=== PATIENT | female | born 1995 | race Caucasian/White ===

== ENCOUNTER → 2016-05-15 | Outpatient (CLI) | payer OTHER ==
[~2016-05-15] MED LIST: ALBU0.633 NEB; ALBU1NEB10 INH; ALBUAER2 INH; BCPILLS PO; DICY20TA10 PO; MELO7.5T5 PO; ONDA8TAB62 SL; OXYC-57 PO; SUMA50TA15 PO; VNTHFA/IN INH; ZOLP5TAB PO
== END | disposition home or self-care (01) ==
LOC: C.PAPS 10:58
PROVIDERS: ATTEND Obstetrics & Gynecology
DX: Z12.4 Encounter for screening for malignant neoplasm of cervix (principal); R87.616 Satisfactory cervical smear but lacking transformation zone

== ENCOUNTER → 2016-05-22 | Day surgery (SDC) | payer OTHER ==
[2016-05-19 11:25] VITALS: Ht 149.9 cm; Wt 55.5 kg
[~2016-05-22] VITALS: Ht 149.9 cm; Wt 55.5 kg
[~2016-05-22] MED LIST changes: +ATROPINE SULFATE 0.1 MG/ML 5ML SYR IV PRN; +BUPIVACAINE/EPINEPHRINE 0.25% 1:200,000 30 ML VIAL ONE; +CEFAZOLIN 1000MG/55 ML D5W IV SCH; +DEXAMETHASONE SOD INJ 4 MG/ML VIAL IV PRN; +DEXAMETHASONE SOD INJ 4 MG/ML VIAL ONE; +EpHEDrine SULFATE INJ 50 MG/ML AMP IV PRN; +EpINEphrine INJ 1MG/ML AMP 1 MG/ML AMP ONE; +FENTANYL CITRATE INJ 50 MCG/1 ML 2 ML VIAL IV PRN; +FENTANYL CITRATE INJ 50 MCG/1 ML 2 ML VIAL ONE; +GLYCOPYRROLATE INJ 0.2 MG/ML VIAL ONE; +LABETALOL HCL IV 5 MG/ML 20ML IV PRN; +LACTATED RINGER'S 1000ML 1,000 ML IV SCH; +LIDOCAINE HCL 1% MPF 2 ML VIAL ONE; +LIDOCAINE HCL 2% 2 ML VIAL (20MG/ML) ONE; +METOCLOPRAMIDE HCL INJ 5 MG/ML 2 ML VIAL IV PRN; +MIDAZOLAM HCL 1 MG/ML 2ML VIAL ONE; +MoRPHine SULFATE 10 MG/ML CARP/VIAL IV PRN; +NEOSTIGMINE METHYLSULFATE 5 MG/5 ML SYR ONE; +ONDANSETRON INJ 2 MG/ML 2 ML VIAL IV PRN; +ONDANSETRON INJ 2 MG/ML 2 ML VIAL ONE; +OXYCODONE/ACETAMINOPHEN 5-325 TAB PO PRN; +PHENYLEPHRINE 100MCG/ML 5ML SYR IV PRN; +ROCURONIUM BROMIDE 10 MG/ML 5 ML VIAL ONE; +ROPIVACAINE 0.5% 5 MG/ML 30 ML VIAL ONE; +SODIUM CHLORIDE 0.9% 1000ML 1,000 ML IV SCH
--- NOTE | 2016-05-22 11:07 | History & Physical Bridge - [place] ---
H&P Re-Evaluation Bridge Note: I have examined the patient, reviewed the History & Physical and in the interval since the performance of the History & Physical I have noted the following changes of clinical significance: No changes noted
--- NOTE | 2016-05-22 13:26 | Discharge Instructions-SurgCtr ---
Discharge Instructions Visit Reason for Visit: Left Shoulder Detachment Glenoid Labrum &/0R Capsu Discharge Discharge Diagnosis / Problem: SAME ABOVE Discharge Goals Goal(s): Decrease discomfort, Improve function Activity Recommendations Activity Limitations: per Instructions/Follow-up section Lifting Limitations: gradually increase as tolerated Exercise/Sports Limitations: gradually increase as tolerated Shower/Bathe: tomorrow Driving or Machine Use: ONCE OUT OF THE SLING AND NOT ON NARCOTIC PAIN MEDICATION Anesthesia . Post Anesthesia Instructions: If you have had General Anesthesia or IV Sedation: * Do not drive today. * Resume driving when surgeon permits. * Do not make important decisions or sign legal documents today. * Call surgeon for: 1. Temperature elevations greater than 101 degrees F. 2. Uncontrollable pain. 3. Excessive bleeding. 4. Persistent nausea and vomiting. 5. Medication intolerance (nausea, vomiting or rash). * For nausea and vomiting use only clear liquids such as: tea, soda, bouillon until nausea subsides, then gradually increase diet as tolerated. * If you have any concerns or questions, call your surgeon's office. If physician is unavailable and it is an emergency, call 911 or go to the nearest emergency room. . Instructions / Follow-Up Instructions / Follow-Up MEDICATIONS: * Resume previous medications unless instructed otherwise by your surgeon. * Always take pain medication on a full stomach or with food to avoid upset stomach. * Do not drink alcohol or drive while taking narcotics. * Ibuprofen or Tylenol may be taken if narcotic not needed. SPECIAL CARE INSTRUCTIONS: __ None _X_ Keep extremity elevated and iced x 48 hours; apply ice 20-30 minutes 8-10 times/day. May remove at night. _X_ Sling (WEAR NEEDED FOR COMFORT) __24 hrs/day __ Remove at night __ Shoulder Immobilizer __ 24 hrs/day __ Remove at night _X_ Dressing __ Maintain until seen in office, may shower with plastic over site _X_ Remove dressings in 24-48 hours and then may shower _X_ Cover incisions with band-aids after showering __ Do not remove steri-strips Call physician if chills or temperature rises above 102 degrees or pain unrelieved by prescribed pain medications at . . Diet Recommendations Home Diet: no limitations Fluid Restriction: None Procedures Procedures Performed: Left Shoulder Arthroscopy, Limited Debridement, Subacromial Decompression, Distal Clavicle Excision Pending Studies Studies pending at discharge: no Work Instructions Return To Work: after follow-up Lifting Limitations: TOLERATED Medical Emergencies . Who to Call and When: Medical Emergencies: If at any time you feel your situation is an emergency, please call 911 immediately. . Non-Emergent Contact Non-Emergency issues call your: Primary Care Provider Call Non-Emergent contact if: you have a fever, temperature is above 101.5 . . "Provider Documentation" section prepared by Christiano Garcia.
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
[2016-05-22 14:05] VITALS: TEMP 36.7
--- NOTE | 2016-05-22 14:31 | Anesthesia Progress Nt - [facility] ---
Anesthesia Post Op Note Date & Time May 22, 2016 at 14:30 Vital Signs Pain Intensity: 0 Vital Signs Past 12 Hours Date Time Temp Pulse Resp B/P Pulse Ox O2 Delivery O2 Flow Rate FiO2 05/22/16 14:05 36.7 95 16 107/67 97 Room Air 05/22/16 13:56 36.5 91 21 113/70 100 Room Air 05/22/16 13:55 84 25 100 05/22/16 13:55 82 25 05/22/16 13:53 113/70 05/22/16 13:50 88 21 100 05/22/16 13:50 88 21 05/22/16 13:48 117/66 05/22/16 13:45 85 19 100 05/22/16 13:45 85 19 05/22/16 13:43 120/73 05/22/16 13:40 90 25 100 05/22/16 13:40 92 25 05/22/16 13:38 118/72 05/22/16 13:35 98 18 05/22/16 13:35 96 18 109/68 100 05/22/16 13:30 88 23 05/22/16 13:30 87 23 100 05/22/16 13:28 115/70 05/22/16 13:25 98 25 05/22/16 13:25 95 25 100 05/22/16 13:23 115/78 05/22/16 13:20 87 19 05/22/16 13:20 87 19 100 05/22/16 13:18 116/81 05/22/16 13:16 36.4 106 20 118/68 100 Mask 6 05/22/16 13:15 99 16 100 05/22/16 13:15 100 16 05/22/16 13:14 118/68 05/22/16 11:50 98 05/22/16 11:50 98 30 100 05/22/16 11:49 90 25 100 05/22/16 11:49 92 05/22/16 11:48 110/73 05/22/16 11:44 97 05/22/16 11:44 98 28 100 05/22/16 11:43 110/73 05/22/16 11:41 105 20 100 05/22/16 11:41 101 05/22/16 11:38 111/69 05/22/16 11:36 93 21 100 05/22/16 11:36 91 05/22/16 11:33 109/72 05/22/16 11:31 101 05/22/16 11:31 96 27 100 05/22/16 11:28 114/74 05/22/16 11:28 115/74 05/22/16 11:26 98 05/22/16 11:26 91 0 96 05/22/16 11:21 87 05/22/16 11:21 82 0 99 05/22/16 11:16 88 0 99 05/22/16 11:16 88 05/22/16 11:11 79 0 100 05/22/16 11:11 81 05/22/16 10:37 36.9 81 16 100/74 99 Room Air Notes Mental Status: alert / awake / arousable, participated in evaluation Pt Amnestic to Procedure: Yes Nausea / Vomiting: adequately controlled Pain: adequately controlled Airway Patency, RR, SpO2: stable & adequate BP & HR: stable & adequate Hydration State: stable & adequate Anesthetic Complications: no major complications apparent
[2016-05-22 14:32] VITALS: BP 103/71; PULSE 92; O2SAT 99
--- NOTE | 2016-05-22 16:09 | [facility] Post Operative Brief Note ---
Immediate Operative Summary Operative Date May 22, 2016. Pre-Operative Diagnosis Left Shoulder Detachment Glenoid Labrum Post-Operative Diagnosis Same Procedure(s) Performed Left Shoulder Arthroscopy, Limited Debridement, Subacromial Decompression, Distal Clavicle Excision Surgeon Dr. Omayra Ledesma Information Security Architect Surgeon(s) Javi Garcia PA-C Estimated Blood Loss 2 cc Findings as above Specimens None Complication(s) None Disposition Recovery Room / PACU
== END | disposition home or self-care (01) ==
LOC: X.SURG 10:21
PROVIDERS: ATTEND Orthopaedic Surgery
DX: M75.92 Shoulder lesion, unspecified, left shoulder (principal); S46.902A Unspecified injury of unspecified muscle, fascia and tendon at shoulder and upper arm level, left arm, initial encounter; V49.88XA Car occupant (driver) (passenger) injured in other specified transport accidents, initial encounter; Y92.410 Unspecified street and highway as the place of occurrence of the external cause

== ENCOUNTER 2016-07-31 09:31 | Emergency (ER) | payer OTHER ==
[~2016-07-31] VITALS: Ht 149.9 cm; Wt 58.9 kg
[~2016-07-31 09:31] MED LIST changes: -ALBU0.633 NEB; -ATROPINE SULFATE 0.1 MG/ML 5ML SYR IV PRN; -BUPIVACAINE/EPINEPHRINE 0.25% 1:200,000 30 ML VIAL ONE; -CEFAZOLIN 1000MG/55 ML D5W IV SCH; -DEXAMETHASONE SOD INJ 4 MG/ML VIAL IV PRN; -DEXAMETHASONE SOD INJ 4 MG/ML VIAL ONE; -EpHEDrine SULFATE INJ 50 MG/ML AMP IV PRN; -EpINEphrine INJ 1MG/ML AMP 1 MG/ML AMP ONE; -FENTANYL CITRATE INJ 50 MCG/1 ML 2 ML VIAL IV PRN; -FENTANYL CITRATE INJ 50 MCG/1 ML 2 ML VIAL ONE; -GLYCOPYRROLATE INJ 0.2 MG/ML VIAL ONE; -LABETALOL HCL IV 5 MG/ML 20ML IV PRN; -LACTATED RINGER'S 1000ML 1,000 ML IV SCH; -LIDOCAINE HCL 1% MPF 2 ML VIAL ONE; -LIDOCAINE HCL 2% 2 ML VIAL (20MG/ML) ONE; -METOCLOPRAMIDE HCL INJ 5 MG/ML 2 ML VIAL IV PRN; -MIDAZOLAM HCL 1 MG/ML 2ML VIAL ONE; -MoRPHine SULFATE 10 MG/ML CARP/VIAL IV PRN; -NEOSTIGMINE METHYLSULFATE 5 MG/5 ML SYR ONE; -ONDANSETRON INJ 2 MG/ML 2 ML VIAL IV PRN; -ONDANSETRON INJ 2 MG/ML 2 ML VIAL ONE; -OXYCODONE/ACETAMINOPHEN 5-325 TAB PO PRN; -PHENYLEPHRINE 100MCG/ML 5ML SYR IV PRN; -ROCURONIUM BROMIDE 10 MG/ML 5 ML VIAL ONE; -ROPIVACAINE 0.5% 5 MG/ML 30 ML VIAL ONE; -SODIUM CHLORIDE 0.9% 1000ML 1,000 ML IV SCH; -VNTHFA/IN INH
[2016-07-31 09:38] VITALS: Ht 149.9 cm; Wt 58.9 kg
[2016-07-31] MEDS ORDERED: HYDROmorphone INJ 1 MG/ML SYR IV STA (10:39)
[2016-07-31] MEDS ORDERED: SODIUM CHLORIDE 0.9% 1000ML 1,000 ML IV STA (10:39)
[2016-07-31] MEDS ORDERED: ONDANSETRON INJ 2 MG/ML 2 ML VIAL IV STA (10:39)
[2016-07-31] MEDS ORDERED: VNTHFA/IN INH (10:41)
[2016-07-31] MEDS ORDERED: ALBU0.633 NEB (10:41)
--- NOTE | 2016-07-31 10:45 | EMERGENCY ROOM VISIT NOTE ---
History Report prepared by Aisha: Tri Coffey Under the Supervision of: Dr. Catina Pascual M.D. First contact with patient: 10:21 Chief Complaint: ABDOMINAL PAIN Stated Complaint: CRONRIS FLARE W/PAIN/NAUSEA Nursing Triage Summary: Had a diagnosis for Claudio dx. Recently DR angelica thrasher that it is not Krohns, but having same pain today as always. History of Present Illness The patient is a 20 year old female who presents to the Emergency Room with complaints of persistent right sided abdominal pain that began a couple days ago. She also complains of nausea. Last night, the patient had a solid bowel movement but noticed some blood on the tissue when she wiped. She states that she was diagnosed with Crohn's disease several years ago at [place]. Currently, she follows up with Dr. Penaloza. Recently, it was determined that she does not have Crohn's, and Dr. Penaloza is "trying to determine" her new diagnosis. Her most recent follow up with Dr. Penaloza was last month. She had a colonoscopy in January 2016 which she states revealed colonic inflammation. The patient's current abdominal pain feels similar to previous abdominal pain flare ups. She has not eaten anything unusual recently. Her most last menstrual period was 2 weeks ago. She denies chance of . Denies fever, diarrhea, urinary symptoms, or other complaints. Source of History: patient Onset: a couple days ago Position: abdomen (right side) Timing: other (persistent) Associated Symptoms: + nausea, No diarrhea, No fevers, No urinary symptoms Note: Other symptoms: rectal bleeding Review of Systems See HPI for pertinent positives & negatives. A total of 10 systems reviewed and were otherwise negative. Past Medical & Surgical Medical Problems: (1) Asthma (2) Crohns disease (3) IBS (irritable bowel syndrome) (4) Panic anxiety syndrome Family History FH: Crohn's disease Heart disease Hypertension Social History Smoking Status: Never Smoker Alcohol Use: none Drug Use: none Marital Status: in relationship Housing Status: lives with roommate Occupation Status: [employer] student Current/Historical Medications Scheduled Albuterol Hfa (Ventolin Hfa), 2-4 PUFFS INH Q6H Control Pills ( Control Pills), 1 TAB PO HS Scheduled PRN Albuterol Sulfate (Albuterol Sulfate), 1 VIAL NEB for SOB/Wheezing Dicyclomine Hcl (Dicyclomine Hcl), 1 TAB PO TID PRN for ABDOMINAL PAIN Meloxicam (Mobic), 7.5-15 MG PO DAILY PRN for Pain Ondansetron Odt (Zofran Odt), 8 MG SL Q6H PRN for Nausea Oxycodone/Acetaminophen 5MG/325MG (Percocet 5MG/325MG), 1-2 TABLETS PO Q6 PRN for Pain Sumatriptan Succinate (Imitrex), 50 MG PO UD PRN for Migraine Zolpidem Tartrate (Ambien), 5 MG PO HS PRN for Sleep Allergies Coded Allergies: Amoxicillin (Verified Adverse Reaction, Unknown, GI UPSET, 07/31/16) Cefuroxime (Verified Adverse Reaction, Unknown, GI UPSET, 07/31/16) Clarithromycin (Verified Adverse Reaction, Unknown, GI UPSET, 07/31/16) Clavulanic Acid (Verified Adverse Reaction, Unknown, GI UPSET, 07/31/16) Ketorolac Tromethamine (Verified Adverse Reaction, Unknown, NAUSEA/ VOMITTING, 07/31/16) Uncoded Allergies: ALL CT CONTRAST (Allergy, Intermediate, ANAPHYLAXIS, 08/02/15) Physical Exam Vital Signs Date Time Temp Pulse Resp B/P Pulse Ox O2 Delivery O2 Flow Rate FiO2 07/31/16 12:56 37.0 82 18 98/68 98 07/31/16 12:34 82 18 98/68 98 Room Air 07/31/16 11:44 70 18 102/65 97 Room Air 07/31/16 11:27 81 07/31/16 09:38 37.0 83 18 119/72 95 Room Air Physical Exam Vital signs reviewed. General: Well-appearing 20 year old female, in no significant distress. HEENT: No scleral icterus, PERRLA, neck supple. Atraumatic. Cardiovascular: Regular rate and rhythm, no extra sounds. Pulmonary: Clear to auscultation bilaterally, normal work of breathing. Abdomen: Soft, mild right lower quadrant abdominal tenderness, no rebound, no guarding, nondistended, positive bowel sounds. Musculoskeletal: Atraumatic, no peripheral edema. Neurologic: Patient awake alert and oriented x 3 Skin: Warm, dry, no rash Medical Decision & Procedures Laboratory Results 07/31/16 10:55 Red Blood Count 4.57, Mean Corpuscular Volume 86.0, Mean Corpuscular Hemoglobin 29.5, Mean Corpuscular Hemoglobin Concent 34.4, Mean Platelet Volume 8.8, Neutrophils (%) (Auto) 50.9, Lymphocytes (%) (Auto) 38.7, Monocytes (%) (Auto) 8.4, Eosinophils (%) (Auto) 0.9, Basophils (%) (Auto) 1.1, Neutrophils # (Auto) 2.73, Lymphocytes # (Auto) 2.08, Monocytes # (Auto) 0.45, Eosinophils # (Auto) 0.05, Basophils # (Auto) 0.06 07/31/16 10:55 Test 07/31/16 10:30 07/31/16 10:55 Urine Color YELLOW Urine Appearance CLEAR (CLEAR) Urine pH 7.5 (4.5-7.5) Urine Specific [place] 1.013 (1.000-1.030) Urine Protein NEG (NEG) Urine Glucose (UA) NEG (NEG) Urine Ketones NEG (NEG) Urine Occult Blood TRACE (NEG) Urine Nitrite NEG (NEG) Urine Bilirubin NEG (NEG) Urine Urobilinogen NEG (NEG) Urine Leukocyte Esterase NEG (NEG) Urine WBC (Auto) 1-5 /hpf (0-5) Urine RBC (Auto) 5-10 /hpf (0-4) Urine Hyaline Casts (Auto) 1-5 /lpf (0-5) Urine Epithelial Cells (Auto) 20-30 /lpf (0-5) Urine Bacteria (Auto) NEG (NEG) Urine Test NEG (NEG) White Blood Count 5.37 K/uL (4.8-10.8) Red Blood Count 4.57 M/uL (4.2-5.4) Hemoglobin 13.5 g/dL (12.0-16.0) Hematocrit 39.3 % (37-47) Mean Corpuscular Volume 86.0 fL (80-100) Mean Corpuscular Hemoglobin 29.5 pg (25-34) Mean Corpuscular Hemoglobin Concent 34.4 g/dl (32-36) Platelet Count 311 K/uL (130-400) Mean Platelet Volume 8.8 fL (7.4-10.4) Neutrophils (%) (Auto) 50.9 % Lymphocytes (%) (Auto) 38.7 % Monocytes (%) (Auto) 8.4 % Eosinophils (%) (Auto) 0.9 % Basophils (%) (Auto) 1.1 % Neutrophils # (Auto) 2.73 K/uL (1.4-6.5) Lymphocytes # (Auto) 2.08 K/uL (1.2-3.4) Monocytes # (Auto) 0.45 K/uL (0.11-0.59) Eosinophils # (Auto) 0.05 K/uL (0-0.5) Basophils # (Auto) 0.06 K/uL (0-0.2) RDW Standard Deviation 41.8 fL (36.4-46.3) RDW Coefficient of Variation 13.3 % (11.5-14.5) Immature Granulocyte % (Auto) 0.0 % Immature Granulocyte # (Auto) 0.00 K/uL (0.00-0.02) Anion Gap 6.0 mmol/L (3-11) Est Creatinine Clear Calc Drug Dose 81.1 ml/min Estimated GFR () 112.7 Estimated GFR (Non- 97.3 BUN/Creatinine Ratio 10.6 (10-20) Calcium Level 9.3 mg/dl (8.5-10.1) Total Bilirubin 0.5 mg/dl (0.2-1) Direct Bilirubin < 0.1 mg/dl (0-0.2) Aspartate Amino Transf (AST/SGOT) 11 U/L (15-37) Alanine Aminotransferase (ALT/SGPT) 18 U/L (12-78) Alkaline Phosphatase 54 U/L (45-117) Total Protein 7.7 gm/dl (6.4-8.2) Albumin 3.9 gm/dl (3.4-5.0) Lipase 181 U/L (73-393) Laboratory results per my review. Medications Administered Medications (Trade) Dose Ordered Sig/Fco Route Start Time Stop Time Status Last Admin Dose Admin Sodium Chloride (Nss 1000ml) 1,000 ml @ 999 mls/hr Q1H1M STAT IV 07/31/16 10:39 07/31/16 11:39 DC 07/31/16 11:06 999 MLS/HR Ondansetron HCl (Zofran Inj) 4 mg NOW STAT IV 07/31/16 10:39 07/31/16 10:42 DC 07/31/16 11:05 4 MG Hydromorphone HCl (Dilaudid Inj) 1 mg NOW STAT IV 07/31/16 10:39 07/31/16 10:42 DC 07/31/16 11:05 1 MG ED Course 1024: Past medical records reviewed. The patient was evaluated in room B1. A complete history and physical examination was performed. 1039: Ordered Dilaudid Inj 1 mg IV, Zofran Inj 4 mg IV, NSS 1000 ml @ 999 mls/ hr IV. 1200: I discussed the case with Dr. Dipak Hutson Gastroenterology. 1220: Upon reevaluation, the patient appeared to have improvement of her symptoms. I discussed findings with the patient. She verbalized agreement of the treatment plan. The patient was discharged home. Medical Decision Differential diagnosis: Etiologies such as appendicitis, diverticulitis, PUD, biliary pathology, UTI, pancreatitis, obstruction, mesenteric ischemia, aortic pathology, infections, inflammatory bowel disease, renal colic, as well as others were entertained. This patient was evaluated and appeared to be in no significant distress. IV access was obtained and laboratory work was drawn. The patient was placed on the quality assurance monitor. She was hydrated with normal saline solution and given IV Dilaudid and Zofran. Laboratory work is fairly unrevealing, urinalysis is negative. I did discuss the case with Dr. Penaloza of gastroenterology. He states the patient's chronic pain is similar. Incidentally he states her workups have essentially been negative and there is no evidence of inflammatory bowel disease. At this time I do not think further abdominal imaging is warranted as she has had multiple CTs. I suspect this is chronic pain and she will follow- up with Dr. penaloza as an outpatient. Consults Time Called: 1150 Consulting Physician: Dr. Dipak Hutson Gastroenterology Returned Call: 1200 I discussed the case with him. Impression Primary Impression: Right lower quadrant abdominal pain Scribe Attestation The scribe's documentation has been prepared under my direction and personally reviewed by me in its entirety. I confirm that the note above accurately reflects all work, treatment, procedures, and medical decision making performed by me. Departure Information Dispostion Home / Self-Care Referrals Sulaiman Ledesma DO (PCP) Silverio Penaloza D.O. Patient Instructions My [facility] Additional Instructions Diagnosis: RLQ abd pain, acute on chronic Continue medications as prescribed by Dr Penaloza. Drink plenty of fluids. Maintain a bland diet this week. Follow up with your doctor this week for reevaluation. Return to emergency for worsening of symptoms or any medical concerns.
[2016-07-31 11:06] LABS: BASO % 1.1 %; BASO ABS # 0.06 K/uL (0-0.2); COMPLETE YES; EOS % 0.9 %; HEMATOCRIT 39.3 % (37-47); LYMPH % 38.7 %; LYMPH ABS # 2.08 K/uL (1.2-3.4); MEAN CORPUSCULAR HEMOGLOBIN 29.5 pg (25-34); MEAN CORPUSCULAR HGB CONC 34.4 g/dl (32-36); MEAN PLATELET VOLUME 8.8 fL (7.4-10.4); MONO % 8.4 %; NEUT % 50.9 %; PLATELET COUNT 311 K/uL (130-400); RED BLOOD COUNT 4.57 M/uL (4.2-5.4); WHITE BLOOD COUNT 5.37 K/uL (4.8-10.8)
[2016-07-31 11:11] LABS: URINE APPEARANCE CLEAR (CLEAR); URINE BILIRUBIN NEG (NEG); URINE COLOR YELLOW; URINE EPITHELIAL CELL AUTO 20-30 /lpf (0-5); URINE NITRITE NEG (NEG); URINE PH 7.5 (4.5-7.5); URINE SPECIFIC GRAVITY 1.013 (1.000-1.030); UROBILINOGEN NEG (NEG); ZZUR CULT IF INDIC CLEAN CATCH NO
[2016-07-31 11:12] LABS: MANUAL MICROSCOPIC REQUIRED? NO; REVIEW REQ? NO
[2016-07-31 11:19] LABS: BLOOD UREA NITROGEN 9 mg/dl (7-18); BUN/CREATININE RATIO 10.6 (10-20); CALCIUM 9.3 mg/dl (8.5-10.1); CARBON DIOXIDE 25 mmol/L (21-32); CHLORIDE 109 mmol/L (98-107); CREATININE 0.85 mg/dl (0.60-1.20); GLUCOSE 94 mg/dl (70-99); POTASSIUM 3.7 mmol/L (3.5-5.1); SODIUM 140 mmol/L (136-145)
[2016-07-31 11:23] LABS: ALKALINE PHOSPHATASE 54 U/L (45-117); ALT/SGPT 18 U/L (12-78); AST/SGOT 11 U/L (15-37)
[2016-07-31 12:56] VITALS: BP 98/68; PULSE 82; TEMP 37; O2SAT 98
== END 2016-07-31 12:57 | disposition home or self-care (01) ==
LOC: C.EDB 09:33
DX: R10.31 Right lower quadrant pain (principal); K50.90 Crohn's disease, unspecified, without complications; K58.9 Irritable bowel syndrome, unspecified; J45.909 Unspecified asthma, uncomplicated; F41.0 Panic disorder [episodic paroxysmal anxiety]; Z79.899 Other long term (current) drug therapy; Z88.1 Allergy status to other antibiotic agents; Z88.8 Allergy status to other drugs, medicaments and biological substances; Z82.49 Family history of ischemic heart disease and other diseases of the circulatory system; Z83.79 Family history of other diseases of the digestive system

== ENCOUNTER 2017-02-16 18:17 | Emergency (ER) | payer OTHER ==
[~2017-02-16] VITALS: Ht 149.9 cm; Wt 62.2 kg
[~2017-02-16 18:17] MED LIST changes: +ALBU0.633 NEB; -ALBU1NEB10 INH; -ALBUAER2 INH; -OXYC-57 PO; +VNTHFA/IN INH
[2017-02-16 18:26] VITALS: TEMP 37; Ht 149.9 cm; Wt 62.2 kg
[2017-02-16] MEDS ORDERED: ONDANSETRON INJ 2 MG/ML 2 ML VIAL IV STA (19:24)
[2017-02-16] MEDS ORDERED: SODIUM CHLORIDE 0.9% 1000ML 1,000 ML IV STA (19:24)
[2017-02-16] MEDS ORDERED: MoRPHine SULFATE 10 MG/ML CARP/VIAL IV PRN (19:30)
[2017-02-16] MEDS ORDERED: ATV/1 PO (19:39)
[2017-02-16 19:54] LABS: BASO % 0.6 %; BASO ABS # 0.04 K/uL (0-0.2); COMPLETE YES; HEMATOCRIT 41.8 % (37-47); IG% 0.1 %; LYMPH % 41.2 %; LYMPH ABS # 2.86 K/uL (1.2-3.4); MEAN CORPUSCULAR HEMOGLOBIN 30.1 pg (25-34); MEAN CORPUSCULAR HGB CONC 34.2 g/dl (32-36); MONO % 5.8 %; NEUT % 52.3 %; PLATELET COUNT 311 K/uL (130-400); RED BLOOD COUNT 4.75 M/uL (4.2-5.4); WHITE BLOOD COUNT 6.94 K/uL (4.8-10.8)
[2017-02-16 20:01] LABS: URINE APPEARANCE CLEAR (CLEAR); URINE BILIRUBIN NEG (NEG); URINE COLOR YELLOW; URINE EPITHELIAL CELL AUTO >30 /lpf (0-5); URINE NITRITE NEG (NEG); URINE PH 7.5 (4.5-7.5); URINE SPECIFIC GRAVITY 1.017 (1.000-1.030); UROBILINOGEN NEG (NEG)
[2017-02-16 20:14] LABS: MANUAL MICROSCOPIC REQUIRED? NO; REVIEW REQ? NO
[2017-02-16 20:20] LABS: BUN/CREATININE RATIO 10.2 (10-20); CALCIUM 8.9 mg/dl (8.5-10.1); CREATININE 0.85 mg/dl (0.60-1.20); POTASSIUM 3.7 mmol/L (3.5-5.1)
--- NOTE | 2017-02-16 20:48 | DIAGNOSTIC IMAGING REPORT ---
APPENDIX ULTRASOUND HISTORY: Right lower quadrant ABDOMINAL PAIN COMPARISON: None. FINDINGS: Transabdominal scanning of the right lower quadrant was performed. The appendix was not identified. There are no fluid collections or masses within the right lower quadrant. IMPRESSION: The appendix was not identified. Electronically signed by: Danielito De Leon M.D. 02/16/2017 8:47 PM Dictated Date/Time: 02/16/2017 8:46 PM
[2017-02-16] MEDS ORDERED: FENTANYL CITRATE INJ 50 MCG/1 ML 2 ML VIAL IV STA (20:51)
[2017-02-16 21:21] VITALS: BP 104/69; PULSE 85; O2SAT 98
--- NOTE | 2017-02-17 01:54 | EMERGENCY ROOM VISIT NOTE ---
ED Visit Note First contact with patient: 19:04 Chief Complaint: I think, having a flare of my irritable bowel disease. History of Present Illness: Ms. Grande is a 21 year-old white female who ambulates into the ED accompanied by a male friend complaining of mid right quadrant abdominal pain. Historically patient reports history of irritable bowel disease, irritable bowel syndrome. She has had no previous abdominal surgeries. Patient reports a gradual onset of right mid quadrant abdominal pain that started approximately 10 hours ago. She reports initially the pain was mild and has gradually increased in intensity. The pain is currently described as squeezing/cramping sensation. She rates the discomfort 7/10. The pain is nonradiating. She has not identified any alleviating factors related to the pain. Her pain worsens with palpation and movements at the waist. She has not taken any medications for pain prior to arrival at the hospital. Associated with her pain she is nauseated but has not vomited; she has used Zofran. She also reports she has a mild decrease in appetite. Patient denies fevers, chills, sweats, skin eruptions, skin color changes, upper respiratory tract symptoms, shortness of breath, chest pain, diarrhea, constipation, rectal bleeding, black/tarry stools, urinary symptoms, hematuria, vaginal bleeding, vaginal discharge, back/flank pain. Review of Systems: As noted above in history of present illness. All body systems were reviewed and found to be negative as noted above. Past Medical History: Asthma, bronchitis, fibromyalgia, migraines, status post right knee or scope, and last shoulder/clavicle arthroscope. Current Medications: control, Zofran, Imitrex, Motrin, Ambien, albuterol, Ativan. Allergies to Medications: All CT contrast medium, amoxicillin, cefuroxime, clarithromycin, clavulanic acid, ketorolac tromethamine. Social History: Patient is currently employed; she feels safe in her home environment; she denies tobacco use and admits to alcohol use. Physical Examination: Vital Signs: Date Time Temp Pulse Resp B/P (MAP) Pulse Ox O2 Delivery O2 Flow Rate FiO2 02/16/17 21:21 85 20 104/69 98 02/16/17 20:20 81 17 102/67 100 Room Air 02/16/17 18:26 37.0 79 20 108/75 99 Room Air GENERAL: 21-year-old female in mild to moderate distress due to pain, nontoxic- appearing, afebrile and hemodynamically stable. NEUROLOGICAL: Awake, alert and oriented to person, place and time. Answering questions appropriately and following commands. Normal gait. Good hand eye coordination. SKIN: Warm, dry and pink. No soft tissue eruptions or trauma noted. HEENT: Atraumatic and normocephalic. PERRLA. Sclera white and conjunctiva pink. Oral cavity moist and pink. Pharynx is nonerythematous or edematous. Speech normal. No lymphadenopathy. Trachea midline. No jugular venous distention. BACK: No tenderness over the bony spine. No CVA tenderness. THORAX: Lungs sounds are clear to auscultation and equal bilaterally with symmetrical chest wall. No wheezing, rales or rhonchi. No crepitus, tenderness , subcutaneous air or deformities noted. HEART: Regular rate and rhythm. No gallops, rubs or murmurs are appreciated. ABDOMEN: Flat and soft with mild to moderate tenderness in the mid right abdomen. No specific tenderness over McBurney's point or throughout the pelvis. Decreased bowel sounds in all quadrants. No guarding, rigidity or organomegaly. EXTREMITIES: Moves all extremities well on command and with purpose. All distal neurovascular statuses are intact and equal bilaterally. ED Course: Patient is assessed as noted above. Laboratory Testing: Test 02/16/17 19:35 Range/Units White Blood Count 6.94 4.8-10.8 K/uL Red Blood Count 4.75 4.2-5.4 M/uL Hemoglobin 14.3 12.0-16.0 g/dL Hematocrit 41.8 37-47 % Mean Corpuscular Volume 88.0 80-100 fL Mean Corpuscular Hemoglobin 30.1 25-34 pg Mean Corpuscular Hemoglobin Concent 34.2 32-36 g/dl Platelet Count 311 130-400 K/uL Mean Platelet Volume 9.0 7.4-10.4 fL Neutrophils (%) (Auto) 52.3 % Lymphocytes (%) (Auto) 41.2 % Monocytes (%) (Auto) 5.8 % Eosinophils (%) (Auto) 0.0 % Basophils (%) (Auto) 0.6 % Neutrophils # (Auto) 3.63 1.4-6.5 K/uL Lymphocytes # (Auto) 2.86 1.2-3.4 K/uL Monocytes # (Auto) 0.40 0.11-0.59 K/uL Eosinophils # (Auto) 0.00 0-0.5 K/uL Basophils # (Auto) 0.04 0-0.2 K/uL RDW Standard Deviation 42.1 36.4-46.3 fL RDW Coefficient of Variation 13.1 11.5-14.5 % Immature Granulocyte % (Auto) 0.1 % Immature Granulocyte # (Auto) 0.01 0.00-0.02 K/uL Urine Color YELLOW Urine Appearance CLEAR CLEAR Urine pH 7.5 4.5-7.5 Urine Specific [place] 1.017 1.000-1.030 Urine Protein NEG NEG Urine Glucose (UA) NEG NEG Urine Ketones NEG NEG Urine Occult Blood TRACE NEG Urine Nitrite NEG NEG Urine Bilirubin NEG NEG Urine Urobilinogen NEG NEG Urine Leukocyte Esterase NEG NEG Urine WBC (Auto) 1-5 0-5 /hpf Urine RBC (Auto) 10-30 0-4 /hpf Urine Hyaline Casts (Auto) 0 0-5 /lpf Urine Epithelial Cells (Auto) >30 0-5 /lpf Urine Bacteria (Auto) NEG NEG Urine Test NEG NEG Sodium Level 140 136-145 mmol/L Potassium Level 3.7 3.5-5.1 mmol/L Chloride Level 110 98-107 mmol/L Carbon Dioxide Level 24 21-32 mmol/L Anion Gap 6.0 3-11 mmol/L Blood Urea Nitrogen 9 7-18 mg/dl Creatinine 0.85 0.60-1.20 mg/dl Est Creatinine Clear Calc Drug Dose 82.6 ml/min Estimated GFR () 111.9 Estimated GFR (Non- 96.6 BUN/Creatinine Ratio 10.2 10-20 Random Glucose 86 70-99 mg/dl Calcium Level 8.9 8.5-10.1 mg/dl Total Bilirubin 0.5 0.2-1 mg/dl Direct Bilirubin 0.1 0-0.2 mg/dl Aspartate Amino Transf (AST/SGOT) 11 15-37 U/L Alanine Aminotransferase (ALT/SGPT) 16 12-78 U/L Alkaline Phosphatase 60 45-117 U/L Total Protein 7.4 6.4-8.2 gm/dl Albumin 3.8 3.4-5.0 gm/dl Lipase 139 73-393 U/L Appendix Ultrasound: Was reviewed by myself and read by the radiologist showing no visualized appendix. Patient was hydrated with normal saline and was given 50 g of fentanyl IV for her pain and 4 mg of Zofran. Patient was reassessed multiple times during her stay in the emergency department. I did have a lengthy conversations about the risks and benefits of CT scan and patient desired to use a watch and wait approach. Patient's case was reviewed with Dr. Leslie; we agreed on diagnostic approach, treatment, disposition and plan per Patient was educated about today's findings and instructed on her treatment plan ; she verbalizes understanding and agreement with this plan. Clinical Impression: Right mid quadrant abdominal pain. Decision-Making: Initially my differential diagnosis I considered appendicitis, ectopic , ovarian torsion, ovarian cyst rupture, hepatitis, pancreatitis, constipation, colitis and other causes. Disposition: Patient discharged home in stable condition accompanied by male friend; prior to departure she was reassessed and subjectively reported she was feeling better and rated her discomfort 3/10. Plan: Patient was encouraged to use ibuprofen or acetaminophen as needed for pain. Patient was encouraged to continue her other medications as needed. Patient was encouraged to follow-up with primary care provider for recheck within 12 hours or return to the ED for recheck. Patient is encouraged return the ED sooner for uncontrolled pain, fevers, vomiting, bloody stools or any new/concerning symptoms.
== END 2017-02-16 21:23 | disposition home or self-care (01) ==
LOC: C.EDB 18:18
DX: R10.31 Right lower quadrant pain (principal); K58.9 Irritable bowel syndrome, unspecified

== ENCOUNTER → 2017-06-25 | Outpatient (CLI) | payer OTHER ==
[~2017-06-25] MED LIST changes: +ATV/1 PO; -DICY20TA10 PO
== END | disposition home or self-care (01) ==
LOC: C.PAPS 11:27
PROVIDERS: ATTEND Obstetrics & Gynecology
DX: Z30.9 Encounter for contraceptive management, unspecified (principal)

== ENCOUNTER → 2017-09-17 | Outpatient (CLI) | payer BC | END | disposition home or self-care (01) | LOC: C.LABSPEC 15:41 | PROVIDERS: ATTEND Obstetrics & Gynecology | DX: N93.9 Abnormal uterine and vaginal bleeding, unspecified (principal) ==

== ENCOUNTER 2018-11-08 06:06 | Observation (INO) ==
--- NOTE | 2018-11-03 11:01 | Anesthesiology Consultation ---
Date of Service November 03, 2018 Assessment & Plan (1) Encounter for pre-operative examination: - S/P colonoscopy: 10/22/18: MAC sedation at [facility] - Check test AM DOS - Patient not seen at [facility]; will need to review PMHX/PSHX with patient AM DOS. Chart Review Chart Review: Acceptable Risk for Surgery and Patient NOT seen in Pre Admission Testing History Surgery Operation Date: 11/08/18 07:00 Proposed Procedures p Laparoscopic Cholecystectomy - Deangelo Dumont MD, FACS Height/Weight Height: 4 ft 11 in Weight: 56.9 kg Allergies Allergy/AdvReac Type Severity Reaction Status Date / Time amoxicillin AdvReac Mild GI UPSET Verified 10/12/18 12:27 cefuroxime AdvReac Mild GI UPSET Verified 10/12/18 12:27 clarithromycin AdvReac Mild GI UPSET Verified 10/12/18 12:27 clavulanic acid AdvReac Mild GI UPSET Verified 10/12/18 12:27 ketorolac AdvReac Mild NAUSEA/VOMI Verified 11/03/18 10:[address] CONTRAST Allergy Severe ANAPHYLAXIS Uncoded 09/30/18 15:14 Medications Home Medications Medication Instructions Recorded Confirmed Last Taken ondansetron HCl [Zofran] 8 mg PO BID PRN 07/30/18 10/12/18 10/11/18 16:00 lorazepam 1 mg PO DIRECTED PRN 09/15/18 10/12/18 Unknown meloxicam 15 mg PO DAILY PRN 09/15/18 10/12/18 Unknown sumatriptan succinate [Imitrex] 50 mg PO DIRECTED PRN 09/15/18 10/12/18 Unknown Kyleena 1 dose INTRAUTERINE UD 09/17/18 10/12/18 10/12/18 pantoprazole 40 mg PO BID 09/17/18 10/12/18 10/11/18 19:30 Past Medical History Medical History Fibromyalgia IBS (irritable bowel syndrome) GERD (gastroesophageal reflux disease) Patella-femoral syndrome Arthralgia Asthma "CHILDHOOD" Panic anxiety syndrome RND (reflex neurovascular dystrophy) Crohns disease Hypothyroidism NO MEDS CURRENTLY; EUTHYROID ON 09/2018 LABS Migraine Osteoarthritis Past Surgical History Surgical History History of arthroscopy of left shoulder History of arthroscopy of right knee History of bladder surgery "BENIGN TUMOR" EXCISION History of colonoscopy History of esophagogastroduodenoscopy (EGD) History of oral surgery FRENECTOMY X 2 Nausea and vomiting after administration of anesthetic agent Social History Smoking Status: Never smoker Hx Alcohol Use: Yes Alcohol type: beer, wine and hard liquor alcohol intake frequency: a few times a week Hx Substance Use: Yes substance use type: marijuana Last Used Substance Other:: MED. MARIJUANA- NO MORE DETAILS PER 10/2018 ANESTHESIA EVALUATION FOR COLO Testing Laboratory Results 09/15/18 WBC 7.54 H/H 13.9/41.2 PLATELETS 290 SODIUM 139 POTASSIUM 3.2 CHLORIDE 105 CO2 27 BUN 7 CREATININE 0.88 GLUCOSE 83 UA negative
[~2018-11-08 06:06] MED LIST changes: -ALBU0.633 NEB; -ATV/1 PO; -BCPILLS PO; +CIPROFLOXACIN 400 MG/200 ML BAG IV SCH; +LR 15ML/HR IV SCH; -MELO7.5T5 PO; -ONDA8TAB62 SL; -SUMA50TA15 PO; -VNTHFA/IN INH; -ZOLP5TAB PO
[2018-11-08] MEDS ORDERED: BUPIVACAINE 0.5 % 5 MG/1 ML MPF 30ML VIAL ONE (06:37)
[2018-11-08] MEDS ORDERED: ONDANSETRON INJ 2 MG/ML 2 ML VIAL ONE (06:51)
[2018-11-08] MEDS ORDERED: MIDAZOLAM HCL 1 MG/ML 2ML VIAL ONE (06:51)
[2018-11-08] MEDS ORDERED: PROPOFOL IV EMULSION 10 MG/ML 20 ML VIAL IV ONE (06:51)
[2018-11-08] MEDS ORDERED: DEXAMETHASONE SOD INJ 4 MG/ML VIAL ONE (06:51)
[2018-11-08] MEDS ORDERED: LIDOCAINE HCL 2% 2 ML VIAL/AMP(20MG/ML) INFIL ONE (06:51)
[2018-11-08] MEDS ORDERED: fentaNYL citrate 100 MCG/2 ML VIAL ONE ×2 (06:51→07:29)
[2018-11-08] MEDS ORDERED: SCOPOLAMINE 1.5 MG TDSY ONE (06:56)
[2018-11-08] MEDS ORDERED: HYDROmorphone INJ 1 MG/ML SYRINGE IV PRN (06:57)
[2018-11-08] MEDS ORDERED: ePHEDrine sulfate 50 MG/ML AMP IV PRN (06:57)
[2018-11-08] MEDS ORDERED: ATROPINE SULFATE 0.1 MG/ML 10ML SYR IV PRN (06:57)
[2018-11-08] MEDS ORDERED: SCOPOLAMINE 1.5 MG TDSY TD ONE (07:00)
[2018-11-08] MEDS ORDERED: GLYCOPYRROLATE 0.2 MG/ML VIAL ONE (07:50)
[2018-11-08] MEDS ORDERED: NEOSTIGMINE METHYLSULFATE 5 MG/5 ML SYR ONE (07:50)
--- NOTE | 2018-11-08 07:58 | Operative Report ---
Post Operative Report Pre & Post Diagnosis Operation Date: 11/08/18 07:00 Pre-Op Diagnosis: Gallbladder Sludge, Right Upper Quadrant Abdominal Pain Post-Op Diagnosis: Gallbladder Sludge, Right Upper Quadrant Abdominal Pain chronic cholecystitis Procedure Operation Date: 11/08/18 07:00 Actual Procedures p Laparoscopic Cholecystectomy - Deangelo Dumont MD, FACS Surgeon Deangelo Dumont MD, FACS Supervisor Cutting Department Steph Watts Estimated Blood Loss 5 Findings Consistent with Post-Op Diagnosis Specimens gallbladder Description of Procedure see dictation I attest to the content of the Intraoperative Record and any orders documented therein. Any exceptions are noted below.
[2018-11-08] MEDS ORDERED: ACETAMINOPHEN 1,000 MG/100 ML VIAL IV ONE (07:59)
[2018-11-08] MEDS ORDERED: ROCURONIUM BROMIDE 10 MG/ML 5 ML VIAL ONE (08:00)
[2018-11-08] MEDS ORDERED: PROMETHAZINE HCL 25 MG in SODIUM CHLORIDE 0.9% 50 ML IV PRN (08:03)
[2018-11-08] MEDS ORDERED: ACETAMINOPHEN 325 MG TAB PO PRN (08:03)
[2018-11-08] MEDS ORDERED: ONDANSETRON INJ 2 MG/ML 2 ML VIAL IV PRN (08:03)
[2018-11-08] MEDS ORDERED: HYDROCODONE/ACETAMOPHEN 5/325MG TAB PO PRN (08:03)
[2018-11-08] MEDS ORDERED: PROMETHAZINE HCL 12.5 MG in SODIUM CHLORIDE 0.9% 50 ML IV PRN (08:03)
[2018-11-08] MEDS ORDERED: HYDROmorphone INJ 0.5 MG/0.5 ML SYR IV PRN (08:03)
[2018-11-08] MEDS ORDERED: IBUPROFEN 600 MG TAB PO PRN (08:03)
--- NOTE | 2018-11-08 09:10 | Anesthesiology Progress Note ---
Date of Service November 08, 2018 Anesthesia Post Procedure Vital Signs Vital Signs: Temp Pulse Resp BP Pulse Ox 11/08/18 09:00 36.3 C L 85 19 108/74 100 11/08/18 08:50 82 20 113/69 100 11/08/18 08:40 75 17 104/70 100 11/08/18 08:30 72 17 111/74 100 11/08/18 08:20 36.1 C L 80 20 110/70 100 11/08/18 06:40 36.9 C 94 H 18 103/69 97 Pain Intensity Abdomen: Pain Intensity: 0 Transfer of Care Handoff Completed per policy Notes Mental Status: alert / awake / arousable Patient Amnestic to Procedure: Yes Nausea / Vomiting: adequately controlled Pain: adequately controlled Airway Patency, RR, SpO2: stable & adequate BP & HR: stable & adequate Hydration State: stable & adequate Anesthetic Complications: no major complications apparent and Pt Satisfied with anesthetic care
[2018-11-08] MEDS ORDERED: SUMAtriptan succinate 50 MG TAB PO PRN (09:24)
[2018-11-08] MEDS: CHECK SCOPOLAMINE PATCH PLACEMENT SCH ×3 (09:34→23:56)
[2018-11-08] MEDS: PANTOprazole 40 MG TAB PO SCH ×2 (09:58→20:31)
[2018-11-08] MEDS: LACTATED RINGER'S 1,000 ML IV SCH ×2 (09:58→10:58)
[2018-11-08] MEDS ORDERED: KETOROLAC 30 MG/ML VIAL IV PRN (10:29)
--- NOTE | 2018-11-08 11:21 | Operative Report ---
DATE OF OPERATION: 11/08/2018 NAME OF OPERATION: Laparoscopic cholecystectomy. PREOPERATIVE DIAGNOSIS: Abdominal pain, gallbladder sludge. POSTOPERATIVE DIAGNOSIS: Abdominal pain, gallbladder sludge with chronic cholecystitis. STAFF SURGEON: Deangelo Dumont MD HEATING SYSTEMS INSTALLER: Flako Guillermo PA-C and Taylor Lewis. ANESTHESIA: General. DESCRIPTION OF PROCEDURE: The patient was brought into the operating room and placed on the operating table in supine position. Pneumatic stockings, orogastric tube were placed. My assistants helped with prepping, draping, removal of the gallbladder, and closure of the wounds. Initially, incision was made just on the upper part of the umbilicus below her piercing using 0.5% plain Marcaine to anesthetize all incisions. Initially Veress needle passed, pneumoperitoneum produced. The patient was placed in reverse Trendelenburg position, rotated to the left. A 5 mm port initially placed and then replaced with an 11 mm port. Under visualization, three 5 mm ports were placed, 1 cephalad and 2 laterally. The gallbladder was then grasped and retracted. It was not significantly distended. Dissection was carried out at the vickey hepatis. There was some thickening and scar tissue in that area, identifying the cystic duct and cystic artery. These were clipped and transected. There was some thickening in the posterior wall consistent with chronic inflammation, all consistent with chronic cholecystitis. The gallbladder was dissected away from the liver bed in the usual fashion. After appropriate hemostasis and irrigation, it was placed in an Endobag and then removed through the umbilical site. The umbilical fascia closed using interrupted 0 Vicryl suture. Subcutaneous tissue reapproximated using 2-0 plain suture, then the skin reapproximated using subcuticular 5-0 Monocryl and Dermabond. The patient was transferred to recovery room in stable condition. I attest to the content of the Intraoperative Record and any orders documented therein. Any exception s are noted below.
[2018-11-08] MEDS: HYDROCODONE/ACETAMOPHEN 5/325MG TAB PO PRN ×2 (14:44→20:36)
[2018-11-09] MEDS: LACTATED RINGER'S 1,000 ML IV SCH (05:39)
--- NOTE | 2018-11-09 07:41 | Anesthesiology Progress Note ---
Date of Service November 09, 2018 Anesthesia Post Procedure Vital Signs Vital Signs: Temp Pulse Resp BP BP Pulse Ox 11/09/18 07:13 37.2 C 60 17 91/52 L 98 11/09/18 03:25 37.0 C 76 14 91/53 L 96 11/08/18 23:47 71 95/57 L 11/08/18 23:30 36.8 C 85 14 92/57 L 98 11/08/18 20:34 37.0 C 88 17 112/73 96 11/08/18 15:52 36.9 C 88 17 106/66 96 11/08/18 12:11 95 H 19 100/66 96 11/08/18 11:08 90 18 106/72 97 11/08/18 10:06 36.6 C 86 16 105/69 96 11/08/18 09:40 89 16 105/71 96 11/08/18 09:10 36.7 C 95 H 16 102/69 100 11/08/18 09:00 36.3 C L 85 19 108/74 100 11/08/18 08:50 82 20 113/69 100 11/08/18 08:40 75 17 104/70 100 11/08/18 08:30 72 17 111/74 100 11/08/18 08:20 36.1 C L 80 20 110/70 100 Pain Intensity Abdomen: Pain Intensity: 2 Notes Mental Status: alert / awake / arousable and participated in evaluation Nausea / Vomiting: adequately controlled Pain: adequately controlled Airway Patency, RR, SpO2: stable & adequate BP & HR: stable & adequate Hydration State: stable & adequate Anesthetic Complications: Pt Satisfied with anesthetic care
[2018-11-09] MEDS: CHECK SCOPOLAMINE PATCH PLACEMENT SCH (08:25)
[2018-11-09] MEDS: PANTOprazole 40 MG TAB PO SCH (08:25)
[2018-11-09] MEDS ORDERED: LEVONORGESTREL SCH (09:00)
[2018-11-09] MEDS: HYDROCODONE/ACETAMOPHEN 5/325MG TAB PO PRN (09:18)
--- NOTE | 2018-11-09 23:27 | Discharge Summary ---
PRINCIPAL DIAGNOSIS: Chronic cholecystitis. PROCEDURES: The patient underwent laparoscopic cholecystectomy. HISTORY OF PRESENT ILLNESS: The patient is a 23-year-old female who has been having intermittent epigastric pain with possible etiology from the gallbladder. The patient was brought in to the hospital on 11/08/2018 where she underwent elective laparoscopic cholecystectomy. She did show some evidence of thickening of the gallbladder consistent with chronic inflammation. She has done quite well overnight and is felt stable for discharge home today to be followed in surgical clinic within 1-2 weeks.
== END 2018-11-09 09:47 | disposition home or self-care (01) ==
LOC: ASU 06:06 → 3W 06:06

== ENCOUNTER 2022-07-01 07:38 | Inpatient (IN) ==
--- NOTE | 2022-07-01 08:19 | History & Physical Report ---
Date of Service July 01, 2022 Assessment & Plan (1) Encounter for induction of labor: (2) Elvie-Danlos disease: Plan Plan pitocin induction, epidural on demand, arom as indicated. fetus category one. anticipate . for her hypermobility disorder/ hEDS, she has been cleared to deliver here. On consult there is mention of increased risk of PPH so will type and screen. We should be careful not to hyperextend or bend joints given easily injured. Admission and Anticipated Discharge Date Admission Date: July 01, 2022 History of Present Illness Chief Complaint: postdates induction Primary Care Provider: Gael Neal DO Patient is a 26yowf, with iup at 41 3/7 weeks who presents to labor and delivery for induction of labor. complicated by EDS as a new diagnosis in . Patient notes good fm, some rare contractions, no lof. Patient had Feliz placed last night and fell out at 11:30 pm. and Delivery Plans ? Elvie-Danlos Syndrome *MFM consult *cervical length to be measured at Anatomy Scan *appt with Elvie-Danlos clinic in April *ok to deliver at [facility] IOL 07/01 with hardyk Fibromylagia Hx Herpes *Valtrex @ 36wks. Flu vaccine given 02/07/22- OB Labs: Blood Type A Positive 11/13/21 Antibody Screen NEGATIVE 11/13/21 Hemoglobin 10.2 g/dl (12.0-16.0) L 05/11/22 Hematocrit 30.0 % (34.1-44.9) L 05/11/22 Mean Corpuscular Volume 88.5 fL (80.0-100.0) 05/11/22 Platelet Count 249 K/uL (130-400) 05/11/22 Rubella IgG Antibody Immune (Immune) 11/13/21 Rapid Plasma Reagin Nonreactive (Nonreactive) 11/13/21 Hepatitis B Surface Antigen. NON-REACTIVE (NON-REACTIVE) 11/13/21 Hepatitis C Antibody (EIA) NON-REACTIVE (NON-REACTIVE) 11/13/21 HIV (1&2) Ag and Ab Confirmation NON-REACTIVE (NON-REACTIVE) 11/13/21 Glucose 1 Hour 50 gm Load 108 mg/dl (70-130) 03/31/22 OB Optional Labs: Chlamydia trachomatis RNA NOT DETECTED (NOT DETECTED) 11/13/21 Neisseria gonorrhoeae RNA NOT DETECTED (NOT DETECTED) 11/13/21 Thyroid Stimulating Hormone (TSH) 1.510 uIu/ml (0.300-4.500) 03/20/21 Labs Reviewed: cf/sma-negative--mln cfdna-low risk--mln gbs neg Allergies Allergy/AdvReac Type Severity Reaction Status Date / Time Iodinated Contrast Media Allergy Severe Anaphylaxis Verified 07/01/22 07:54 clindamycin AdvReac Severe Hives Verified 07/01/22 07:54 amoxicillin AdvReac Mild GI UPSET Verified 07/01/22 07:54 cefuroxime AdvReac Mild GI UPSET Verified 07/01/22 07:54 clarithromycin AdvReac Mild GI UPSET Verified 07/01/22 07:54 clavulanic acid AdvReac Mild GI UPSET Verified 07/01/22 07:54 ketorolac AdvReac Mild NAUSEA/VOMI Verified 07/01/22 07:54 TING Home Medications Medication Instructions Recorded Confirmed Type prenat.vits,veronika,dhp-xsuq-hyett 1 tab PO DAILY 09/11/21 07/01/22 History ondansetron HCl 4 mg tablet 4 mg PO Q6H PRN nausea and 12/09/21 07/01/22 Rx vomiting #10 tabs ferrous sulfate 325 mg (65 mg 325 mg PO DAILY 05/11/22 07/01/22 History iron) tablet (iron) valacyclovir 500 mg tablet 500 mg PO BID 6 weeks #84 tabs 05/16/22 07/01/22 Rx (Valtrex) polyethylene glycol 3350 17 gram 17 g PO DAILY 07/01/22 07/01/22 History oral powder packet (Miralax) Patient History Medical History Arthralgia Asthma "CHILDHOOD" Elvie-Danlos disease Okay to deliver at [facility]. Patient has appointment at [facility] - 04/2022 Fibromyalgia GERD (gastroesophageal reflux disease) Herpes Start Valtrex at 36 weeks IBS (irritable bowel syndrome) Migraine Osteoarthritis Juvenile arthritis Panic anxiety syndrome Patella-femoral syndrome RND (reflex neurovascular dystrophy) Surgical History History of arthroscopic knee surgery History of arthroscopy of left shoulder History of bladder surgery "BENIGN TUMOR" EXCISION History of colonoscopy History of esophagogastroduodenoscopy (EGD) History of oral surgery FRENECTOMY X 2 Hx of cholecystectomy 2019 Nausea and vomiting after administration of anesthetic agent Family History Grandmother (Maternal) Family history of reaction to anesthesia delirium lasting a couple days after anesthesia Clotting disorder Hypertension Mother Heart disease Endometriosis Uterine leiomyoma Aunt Skin cancer Denies family history of Ovarian cancer Prostate cancer Myocardial infarction Breast cancer Colorectal cancer Social History Smoking Status: Never smoker Second Hand Exposure: No; Hx Alcohol Use: No Hx Substance Use: No Preferred Language: Indian Communication Ability: Effective Visual Impairment: No Limitations Hearing Ability: Normal 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
[2022-07-01] MEDS ORDERED: OXYTOCIN 30 UNITS/500 ML BAG IV PRN ×2 (08:29→08:43)
[2022-07-01] MEDS ORDERED: LIDOCAINE 1% LOCAL 20 ML VIAL INFIL PRN (08:29)
[2022-07-01] MEDS: LACTATED RINGER'S 1,000 ML IV PRN ×3 (09:05→18:30)
[2022-07-01 09:18] LABS: Hematocrit (blood only) 33.2 % (37.0-47.0); Hemoglobin 11.2 g/dl (12.0-16.0); Mean Corpuscular Hemoglobin 30.4 pg (25.0-34.0); Mean Corpuscular Hgb Conc 33.7 g/dL (32.0-36.0); Mean Platelet Volume 9.8 fL (9.4-12.4); Platelet Count 237 K/uL (130-400); RDW Coefficient of Variation 15.1 % (11.5-14.5); RDW Standard Deviation 49.6 fL (36.4-46.3); Red Blood Count 3.69 M/uL (4.20-5.40); White Blood Count 9.16 K/ul (4.8-10.8)
[2022-07-01] MEDS ORDERED: fentaNYL citrate 100 MCG/2 ML VIAL ONE (14:22)
[2022-07-01] MEDS ORDERED: SODIUM CHLORIDE 0.9% INJ 10 ML VIAL ONE (14:22)
[2022-07-01] MEDS ORDERED: ePHEDrine sulfate 50 MG/ML AMP ONE (14:22)
[2022-07-01] MEDS ORDERED: BUPIVACAINE 0.25% 30 ML VIAL ONE (14:23)
[2022-07-01] MEDS ORDERED: LIDOCAINE 2%/EPINEPHRINE 1:200,000 20 ML SDV ONE (14:23)
[2022-07-01] MEDS ORDERED: fentaNYL 2MCG/ML ROPIVACAINE 1.25MG/ML 100 ML BAG EPI ONE (14:23)
[2022-07-01] MEDS ORDERED: NALBUPHINE HCL INJ 10 MG/ML AMP IV PRN (14:59)
[2022-07-01] MEDS ORDERED: fentaNYL 2MCG/ML ROPIVACAINE 1.25MG/ML 100 ML BAG EPI PRN (14:59)
[2022-07-01] MEDS ORDERED: ePHEDrine sulfate 50 MG/ML AMP IV PRN (14:59)
[2022-07-01] MEDS ORDERED: diphenhydrAMINE 50 MG/ML VIAL IV PRN (14:59)
[2022-07-01] MEDS ORDERED: NALOXONE HCL 0.4 MG/1 ML VIAL/CARP IV PRN (14:59)
[2022-07-01] MEDS ORDERED: NALOXONE HCL 1 MG in SODIUM CHLORIDE 0.9% 1000ML 1,000 ML IV PRN (14:59)
--- NOTE | 2022-07-01 15:29 | Anesthesiology Consultation ---
Date of Service July 01, 2022 Assessment & Plan (1) Encounter for pre-operative examination: Chart Review Chart Review: Patient NOT seen in Pre Admission Testing and Acceptable Risk for Labor Epidural Consults Requested none History Height/Weight Height: 4 ft 11 in Weight: 75.296 kg Allergies Allergy/AdvReac Type Severity Reaction Status Date / Time Iodinated Contrast Media Allergy Severe Anaphylaxis Verified 07/01/22 07:54 clindamycin AdvReac Severe Hives Verified 07/01/22 07:54 amoxicillin AdvReac Mild GI UPSET Verified 07/01/22 07:54 cefuroxime AdvReac Mild GI UPSET Verified 07/01/22 07:54 clarithromycin AdvReac Mild GI UPSET Verified 07/01/22 07:54 clavulanic acid AdvReac Mild GI UPSET Verified 07/01/22 07:54 ketorolac AdvReac Mild NAUSEA/VOMI Verified 07/01/22 07:54 TING Medications Home Medications Medication Instructions Recorded Confirmed Last Taken prenat.vits,veronika,fmi-msev-sukom 1 tab PO DAILY 09/11/21 07/01/22 06/30/22 18:00 ondansetron HCl 4 mg tablet 4 mg PO Q6H PRN nausea and 12/09/21 07/01/22 06/27/22 08:00 vomiting #10 tabs ferrous sulfate 325 mg (65 mg 325 mg PO DAILY 05/11/22 07/01/22 06/30/22 23:00 iron) tablet (iron) valacyclovir 500 mg tablet 500 mg PO BID 6 weeks #84 tabs 05/16/22 07/01/22 07/01/22 05:45 (Valtrex) polyethylene glycol 3350 17 gram 17 g PO DAILY 07/01/22 07/01/22 07/01/22 07:56 oral powder packet (Miralax) Active Medications Generic Name Dose Route Start Last Admin Trade Name Freq PRN Reason Stop Dose Admin Lactated Ringer's 1,000 mls @ 125 mls/hr 07/01/22 08:29 07/01/22 14:47 Lr IV 07/03/22 08:28 999 mls/hr .Q8H PRN Administration L&D Protocol Protocol Oxytocin 30 units in 500 mls @ 12 mls/hr 07/01/22 08:43 07/01/22 13:59 Pitocin IV 07/03/22 08:42 0.72 units/hr .Q24H PRN 12 mls/hr Labor Induction/Augmentation Titration Protocol 0.72 UNITS/HR Past Medical History Medical History Arthralgia Asthma "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 Patient has appointment at [facility] - 04/2022 Fibromyalgia GERD (gastroesophageal reflux disease) Herpes Start Valtrex at 36 weeks IBS (irritable bowel syndrome) Migraine Osteoarthritis Juvenile arthritis Panic anxiety syndrome Patella-femoral syndrome RND (reflex neurovascular dystrophy) Exercise / Class Metabolic Activity II 4-5 Yardwork/Stairs/Walk up hill Past Family History Family History Grandmother (Maternal) Family history of reaction to anesthesia delirium lasting a couple days after anesthesia Clotting disorder Hypertension Mother Heart disease Endometriosis Uterine leiomyoma Aunt Skin cancer Denies family history of Ovarian cancer Prostate cancer Myocardial infarction Breast cancer Colorectal cancer Past Surgical History Surgical History History of arthroscopic knee surgery History of arthroscopy of left shoulder History of bladder surgery "BENIGN TUMOR" EXCISION History of colonoscopy History of esophagogastroduodenoscopy (EGD) History of oral surgery FRENECTOMY X 2 Hx of cholecystectomy 2019 Nausea and vomiting after administration of anesthetic agent Past Anesthesia History No Hx of Anesthesia Complications and No Family Hx of Anesthesia Complications History of PONV No Hx of PONV and No Hx of Motion Sickness Social History Smoking Status: Never smoker Hx Alcohol Use: No alcohol intake frequency: a few times a month Hx Substance Use: No Physical Exam Vital Signs Last Vital Signs Temp 36.8 C 07/01/22 14:35 Pulse 86 07/01/22 14:59 Resp 20 07/01/22 14:35 BP 116/75 07/01/22 14:35 Pulse Ox 97 07/01/22 14:59 Testing Laboratory Results 07/01/22 08:46 Blood Type A Positive 07/01/22 08:46 Antibody Screen NEGATIVE 07/01/22 08:46
--- NOTE | 2022-07-01 16:12 | Labor Progress Brief Note ---
Date of Service July 01, 2022 Subjective comfortable Assessment & Plan (1) Encounter for induction of labor: Plan continue current management. arrythmia heard but fht reassuring. anticipate . Admission and Anticipated Discharge Date Admission Date: July 01, 2022 Physical Exam Physical Exam: cx--/-2 arom--thin mec, copoius toco--q2-3min, pit at 12 efm--150s with mod variabiity, accels to 170s, no decels Results & Data ([facility]) Vital Signs (Past 12 Hours) Vital Signs Temp Pulse Resp BP Pulse Ox 07/01/22 16:09 100 H 77/48 L 99 07/01/22 16:06 109 H 110/69 07/01/22 16:04 109 H 97 07/01/22 16:02 110 H 118/69 07/01/22 15:59 110 H 97 07/01/22 15:57 113 H 116/68 07/01/22 15:54 114 H 96 07/01/22 15:51 106/63 07/01/22 15:49 115 H 97 07/01/22 15:46 109 H 110/67 07/01/22 15:44 112 H 97 07/01/22 15:41 106 H 108/63 07/01/22 15:39 114 H 102/62 98 07/01/22 15:37 105 H 103/61 07/01/22 15:34 108 H 98 07/01/22 15:35 109 H 112/69 07/01/22 15:33 108 H 116/70 07/01/22 15:31 104 H 114/69 07/01/22 15:29 99 07/01/22 15:29 101 H 07/01/22 15:29 104 H 112/68 07/01/22 15:27 102 H 107/68 07/01/22 15:25 95 H 123/75 07/01/22 15:24 98 H 97 07/01/22 15:23 98 H 117/69 07/01/22 15:19 110 H 98 07/01/22 15:14 99 H 100 07/01/22 15:09 108 H 99 07/01/22 15:04 99 H 98 07/01/22 14:59 86 97 07/01/22 14:54 97 H 98 07/01/22 14:49 88 99 07/01/22 14:44 96 H 98 07/01/22 14:39 92 H 98 07/01/22 14:35 20 07/01/22 14:35 36.8 C 92 H 20 116/75 07/01/22 14:34 99 H 99 07/01/22 13:58 98 H 111/70 07/01/22 13:16 100 H 120/74 07/01/22 12:25 87 112/67 07/01/22 11:30 36.9 C 102 H 20 118/74 07/01/22 10:29 87 119/67 07/01/22 09:19 100 H 111/70 07/01/22 07:47 36.8 C 109 H 20 119/73 Coding Level of Care Code None Diagnoses Encounter for induction of labor Z34.90
[2022-07-01] MEDS: ONDANSETRON INJ 2 MG/ML 2 ML VIAL IV PRN ×2 (16:14→21:46)
--- NOTE | 2022-07-01 19:52 | Labor Progress Brief Note ---
Date of Service July 01, 2022 Subjective Noting discomfort in the back and on the left Assessment & Plan (1) Encounter for induction of labor: Plan Making nice change. Continue current management. fetus category one. work on pain management. Admission and Anticipated Discharge Date Admission Date: July 01, 2022 Physical Exam Physical Exam: cx--6/80/-2 toco--q2-3, pit at 14 efm--130s wtih mod variabiltiy, accels present to 160s, arrythmia audible Results & Data ([facility]) Vital Signs (Past 12 Hours) Vital Signs Temp Pulse Resp BP Pulse Ox O2 Del Method 07/01/22 19:09 36.6 C 18 07/01/22 19:09 Room Air 07/01/22 19:48 108 H 91 07/01/22 19:44 95 H 97 07/01/22 19:30 18 07/01/22 19:30 18 07/01/22 19:42 93 H 93 07/01/22 19:39 102 H 98 07/01/22 19:37 101 H 113/68 07/01/22 19:34 97 H 100 07/01/22 19:29 96 H 96 07/01/22 19:24 98 H 97 07/01/22 19:21 100 H 107/70 07/01/22 19:19 96 H 97 07/01/22 19:14 93 H 97 07/01/22 19:09 94 H 99 07/01/22 19:08 101 H 109/71 07/01/22 19:07 18 07/01/22 19:07 36.6 C 18 07/01/22 19:04 104 H 99 07/01/22 18:59 99 H 97 07/01/22 18:54 102 H 97 07/01/22 18:51 96 H 107/65 07/01/22 18:49 97 H 97 07/01/22 18:44 103 H 98 07/01/22 18:39 96 H 98 07/01/22 18:37 91 H 20 108/66 07/01/22 18:34 88 97 07/01/22 18:29 97 H 98 07/01/22 18:24 95 H 98 07/01/22 18:21 93 H 103/62 07/01/22 18:19 102 H 97 07/01/22 18:14 97 H 98 07/01/22 18:09 91 H 98 07/01/22 18:07 93 H 101/58 L 07/01/22 16:30 18 07/01/22 16:30 18 07/01/22 18:04 103 H 97 07/01/22 17:00 20 07/01/22 17:00 20 07/01/22 18:00 20 07/01/22 18:00 36.5 C 20 07/01/22 17:59 99 H 98 07/01/22 17:54 91 H 96 07/01/22 17:51 100 H 105/59 L 07/01/22 17:49 92 H 96 07/01/22 17:44 93 H 98 07/01/22 17:39 96 H 98 07/01/22 17:36 100 H 20 99/56 L 07/01/22 17:34 96 H 97 07/01/22 17:29 95 H 97 07/01/22 17:24 96 H 97 07/01/22 17:23 99 H 99/54 L 07/01/22 17:19 105 H 98 07/01/22 17:14 90 98 07/01/22 17:09 95 H 97 07/01/22 17:08 96 H 109/60 07/01/22 17:04 105 H 96 07/01/22 16:59 112 H 97 07/01/22 16:54 108 H 96 07/01/22 16:51 101 H 106/65 07/01/22 16:49 108 H 96 07/01/22 16:44 106 H 96 07/01/22 16:39 107 H 96 07/01/22 16:37 111 H 107/71 07/01/22 16:34 111 H 98 07/01/22 16:29 111 H 97 07/01/22 16:24 106 H 97 07/01/22 16:23 101 H 105/67 07/01/22 16:19 101 H 97 07/01/22 16:14 111 H 97 07/01/22 16:13 107 H 104/68 07/01/22 16:10 100 H 100/59 L 07/01/22 16:09 100 H 77/48 L 99 07/01/22 16:06 109 H 110/69 07/01/22 16:04 109 H 97 07/01/22 16:02 110 H 20 118/69 07/01/22 15:59 110 H 97 07/01/22 15:57 113 H 116/68 07/01/22 15:54 114 H 96 07/01/22 15:51 106/63 07/01/22 15:49 115 H 97 07/01/22 15:46 109 H 110/67 07/01/22 15:44 112 H 97 07/01/22 15:41 106 H 108/63 07/01/22 15:39 114 H 102/62 98 07/01/22 15:37 105 H 103/61 07/01/22 15:34 108 H 98 07/01/22 15:35 109 H 112/69 07/01/22 15:33 108 H 116/70 07/01/22 15:31 104 H 114/69 07/01/22 15:29 99 07/01/22 15:29 101 H 07/01/22 15:29 104 H 112/68 07/01/22 15:27 102 H 107/68 07/01/22 15:25 95 H 123/75 07/01/22 15:24 98 H 97 07/01/22 15:23 98 H 117/69 07/01/22 15:19 110 H 98 07/01/22 15:14 99 H 100 07/01/22 15:09 108 H 99 07/01/22 15:04 99 H 98 07/01/22 14:59 86 97 07/01/22 14:54 97 H 98 07/01/22 14:49 88 99 07/01/22 14:44 96 H 98 07/01/22 14:39 92 H 98 07/01/22 14:35 20 07/01/22 14:35 36.8 C 92 H 20 116/75 07/01/22 14:34 99 H 99 07/01/22 13:58 98 H 111/70 07/01/22 13:16 100 H 120/74 07/01/22 12:25 87 112/67 07/01/22 11:30 36.9 C 102 H 20 118/74 07/01/22 10:29 87 119/67 07/01/22 09:19 100 H 111/70 Coding Level of Care Code None Diagnoses Encounter for induction of labor Z34.90
--- NOTE | 2022-07-02 00:17 | Labor Progress Brief Note ---
Date of Service July 02, 2022 Subjective patient just recently started noting discomfort, is not tolerating well. Assessment & Plan (1) Encounter for induction of labor: Plan Plan to have anesthesia out to evaluate. If cannot control pain, she is probably not going to be able to push effectively. also will not be able to labor down as feeling too much discomfort. Fetus overall reassuring. Admission and Anticipated Discharge Date Admission Date: July 01, 2022 Physical Exam Physical Exam: cx--c/c/+1 toco--q2-4min, pit off efm--160s with mod variability, variables with contractions Results & Data ([facility]) Vital Signs (Past 12 Hours) Vital Signs Temp Pulse Resp BP Pulse Ox O2 Del Method 07/01/22 19:09 36.6 C 18 07/01/22 19:09 Room Air 07/02/22 00:10 129 H 91 07/02/22 00:05 93 07/02/22 00:05 124 H 07/02/22 00:05 128 H 88 L 07/01/22 23:59 124 H 97 07/02/22 00:00 120 H 20 92 07/01/22 23:45 20 07/01/22 23:45 20 07/01/22 23:30 20 07/01/22 23:30 20 07/01/22 23:00 20 07/01/22 23:00 20 07/01/22 23:54 125 H 96 07/01/22 22:30 18 07/01/22 22:30 18 07/01/22 23:49 116 H 97 07/01/22 23:44 122 H 97 07/01/22 23:39 121 H 100 07/01/22 23:37 112 H 116/77 07/01/22 23:34 117 H 96 07/01/22 23:29 130 H 99 07/01/22 23:26 113 H 92 07/01/22 23:24 112 H 100 07/01/22 23:22 121 H 115/59 L 07/01/22 23:19 138 H 100 07/01/22 23:20 126 H 89 L 07/01/22 23:15 20 07/01/22 23:15 37.3 C 20 07/01/22 23:14 123 H 100 07/01/22 23:09 119 H 100 07/01/22 23:08 117 H 125/65 07/01/22 23:07 115 H 90 07/01/22 23:04 104 H 100 07/01/22 22:59 122 H 70 L 07/01/22 22:54 106 H 100 07/01/22 22:52 99 H 114/71 07/01/22 22:49 100 H 99 07/01/22 22:44 193 H 80 L 07/01/22 22:43 112 H 93 07/01/22 22:39 100 H 98 07/01/22 22:37 103 H 112/74 07/01/22 22:34 103 H 98 07/01/22 22:29 99 H 98 07/01/22 22:24 112 H 100 07/01/22 22:19 94 07/01/22 22:19 108 H 07/01/22 22:19 106 H 93 07/01/22 22:14 107 H 99 07/01/22 22:13 107 H 88 L 07/01/22 21:30 18 07/01/22 21:30 18 07/01/22 22:09 102 H 100 07/01/22 22:08 107 H 110/66 07/01/22 22:04 107 H 100 07/01/22 21:59 111 H 98 07/01/22 22:00 113 H 18 93 07/01/22 21:54 109 H 96 07/01/22 21:55 110 H 90 07/01/22 21:49 117 H 99 07/01/22 21:48 119 H 88 L 07/01/22 21:44 116 H 100 07/01/22 21:39 107 H 97 07/01/22 21:38 102 H 106/67 07/01/22 21:34 100 H 100 07/01/22 21:20 36.8 C 07/01/22 21:29 106 H 100 07/01/22 21:24 97 07/01/22 21:24 103 H 07/01/22 21:24 113 H 92 07/01/22 21:23 104 H 114/59 L 07/01/22 21:19 91 H 99 07/01/22 21:14 86 99 07/01/22 21:09 84 99 07/01/22 21:07 102 H 105/57 L 07/01/22 21:04 92 H 97 07/01/22 21:00 18 07/01/22 21:00 18 07/01/22 20:59 86 97 07/01/22 20:54 88 96 07/01/22 20:30 18 07/01/22 20:30 18 07/01/22 20:53 86 104/58 L 07/01/22 20:49 88 97 07/01/22 20:44 86 98 07/01/22 20:39 87 97 07/01/22 20:37 82 104/55 L 07/01/22 20:34 86 97 07/01/22 20:29 89 96 07/01/22 20:24 92 H 96 07/01/22 20:22 90 97/52 L 07/01/22 20:19 98 H 97 07/01/22 20:14 94 H 96 07/01/22 20:09 105 H 97 07/01/22 20:06 93 H 100/58 L 07/01/22 20:04 101 H 97 07/01/22 20:00 18 07/01/22 20:00 18 07/01/22 19:59 91 H 97 07/01/22 19:54 94 H 97 07/01/22 19:53 91 H 96/55 L 07/01/22 19:49 98 H 96 07/01/22 19:48 108 H 91 07/01/22 19:44 95 H 97 07/01/22 19:30 18 07/01/22 19:30 18 07/01/22 19:42 93 H 93 07/01/22 19:39 102 H 98 07/01/22 19:37 101 H 113/68 07/01/22 19:34 97 H 100 07/01/22 19:29 96 H 96 07/01/22 19:24 98 H 97 07/01/22 19:21 100 H 107/70 07/01/22 19:19 96 H 97 07/01/22 19:14 93 H 97 07/01/22 19:09 94 H 99 07/01/22 19:08 101 H 109/71 07/01/22 19:07 18 07/01/22 19:07 36.6 C 18 07/01/22 19:04 104 H 99 07/01/22 18:59 99 H 97 07/01/22 18:54 102 H 97 07/01/22 18:51 96 H 107/65 07/01/22 18:49 97 H 97 07/01/22 18:44 103 H 98 07/01/22 18:39 96 H 98 07/01/22 18:37 91 H 20 108/66 07/01/22 18:34 88 97 07/01/22 18:29 97 H 98 07/01/22 18:24 95 H 98 07/01/22 18:21 93 H 103/62 07/01/22 18:19 102 H 97 07/01/22 18:14 97 H 98 07/01/22 18:09 91 H 98 07/01/22 18:07 93 H 101/58 L 07/01/22 16:30 18 07/01/22 16:30 18 07/01/22 18:04 103 H 97 07/01/22 17:00 20 07/01/22 17:00 20 07/01/22 18:00 20 07/01/22 18:00 36.5 C 20 07/01/22 17:59 99 H 98 07/01/22 17:54 91 H 96 07/01/22 17:51 100 H 105/59 L 07/01/22 17:49 92 H 96 07/01/22 17:44 93 H 98 07/01/22 17:39 96 H 98 07/01/22 17:36 100 H 20 99/56 L 07/01/22 17:34 96 H 97 07/01/22 17:29 95 H 97 07/01/22 17:24 96 H 97 07/01/22 17:23 99 H 99/54 L 07/01/22 17:19 105 H 98 07/01/22 17:14 90 98 07/01/22 17:09 95 H 97 07/01/22 17:08 96 H 109/60 07/01/22 17:04 105 H 96 07/01/22 16:59 112 H 97 07/01/22 16:54 108 H 96 07/01/22 16:51 101 H 106/65 07/01/22 16:49 108 H 96 07/01/22 16:44 106 H 96 07/01/22 16:39 107 H 96 07/01/22 16:37 111 H 107/71 07/01/22 16:34 111 H 98 07/01/22 16:29 111 H 97 07/01/22 16:24 106 H 97 07/01/22 16:23 101 H 105/67 07/01/22 16:19 101 H 97 07/01/22 16:14 111 H 97 07/01/22 16:13 107 H 104/68 07/01/22 16:10 100 H 100/59 L 07/01/22 16:09 100 H 77/48 L 99 07/01/22 16:06 109 H 110/69 07/01/22 16:04 109 H 97 07/01/22 16:02 110 H 20 118/69 07/01/22 15:59 110 H 97 07/01/22 15:57 113 H 116/68 07/01/22 15:54 114 H 96 07/01/22 15:51 106/63 07/01/22 15:49 115 H 97 07/01/22 15:46 109 H 110/67 07/01/22 15:44 112 H 97 07/01/22 15:41 106 H 108/63 07/01/22 15:39 114 H 102/62 98 07/01/22 15:37 105 H 103/61 07/01/22 15:34 108 H 98 07/01/22 15:35 109 H 112/69 07/01/22 15:33 108 H 116/70 07/01/22 15:31 104 H 114/69 07/01/22 15:29 99 07/01/22 15:29 101 H 07/01/22 15:29 104 H 112/68 07/01/22 15:27 102 H 107/68 07/01/22 15:25 95 H 123/75 07/01/22 15:24 98 H 97 07/01/22 15:23 98 H 117/69 07/01/22 15:19 110 H 98 07/01/22 15:14 99 H 100 07/01/22 15:09 108 H 99 07/01/22 15:04 99 H 98 07/01/22 14:59 86 97 07/01/22 14:54 97 H 98 07/01/22 14:49 88 99 07/01/22 14:44 96 H 98 07/01/22 14:39 92 H 98 07/01/22 14:35 20 07/01/22 14:35 36.8 C 92 H 20 116/75 07/01/22 14:34 99 H 99 07/01/22 13:58 98 H 111/70 07/01/22 13:16 100 H 120/74 07/01/22 12:25 87 112/67 Coding Level of Care Code None Diagnoses Encounter for induction of labor Z34.90
[2022-07-02] MEDS ORDERED: BUPIVACAINE 0.25% 30 ML VIAL ONE (00:23)
[2022-07-02] MEDS: LACTATED RINGER'S 1,000 ML IV PRN (01:03)
[2022-07-02] MEDS ORDERED: ACETAMINOPHEN 325 MG TAB PO PRN (01:59)
[2022-07-02] MEDS ORDERED: BENZOCAINE 20% AER SPR 82.5 GM CAN EXT PRN (01:59)
[2022-07-02] MEDS ORDERED: HYDROCORTISONE ACETATE 25 MG SUPP PR PRN (01:59)
[2022-07-02] MEDS ORDERED: oxyCODONE/ACETAMINOPHEN 5mg/325mg TAB PO PRN (01:59)
[2022-07-02] MEDS ORDERED: DIPHTHERIA/TETANUS/PERTUSSIS 0.5mL SYR/VIAL (Age 7+yrs) IM ONE (01:59)
[2022-07-02] MEDS ORDERED: METHYLERGONOVINE MALEATE 0.2 MG/ML AMP IM ONE (01:59)
[2022-07-02] MEDS ORDERED: OXYTOCIN 30 UNITS/500 ML BAG IV PRN (01:59)
--- NOTE | 2022-07-02 02:08 | Delivery Summary ---
Vaginal Delivery Summary Date of Service July 02, 2022 Vaginal Delivery Summary and 2nd Degree LAC Pre-operative Diagnosis: at 41 4/7 induction for postdates Post-operative Diagnosis: same Procedure: pitocin induction epidural arom second degree laceration and repair manual extraction of the placenta EBL: 400cc Anesthesia: epidural, local infiltration of lidocaine Procedure: Patient pushed for a total of 2.5 hours to deliver a viable male infant in marina position. Moderate amount of thick green meconium noted after delivery of the head. The anterior shoulder was immediately delivered without difficulty and the rest of the infant was then delivered without difficulty. The baby was vigorous. No nuchal cord. The nose and mouth were bulb suctioned and the infant was placed in the maternal abdomen for drying and attention. Cord was clamped and cut at approximately one minute of life. Cord blood and segment obtained. Placenta delivered by manual extraction after no movement for 20+ minutes, intact with a three vessel cord. Cervix/sulci/rectum were intact. A second degree perineal laceration was repaired in the normal standard fashion. Hemostasis obtained with dilute pitocin and fundal massage and im methergine. Apgars were 8/9. Mother and baby doing well at the end of the delivery. [facility] Vaginal Delivery Charge Delivery Type Details: and 2nd Degree LAC
[2022-07-02] MEDS ORDERED: ceFAZolin 2000MG 2,000 MG/15 ML SYR IV STA (02:15)
[2022-07-02 02:23] LABS: Base Excess Cord Venous Blood -2.9 mEq/L (-7.7-1.9); Cord Venous Blood HCO3 23 mmol/L (18.4-26.8); Cord Venous Blood PCO2 41 mmHg (30.4-57.2); Cord Venous Blood PO2 31 mmHg (14.1-43.3); Cord Venous Blood pH 7.35 (7.20-7.44); O2 Saturation Cord Venous Bld < 60.0 % (<68)
[2022-07-02] MEDS: IBUPROFEN 600 MG TAB PO PRN ×5 (04:10→21:57)
[2022-07-02 04:21] LABS: Base Excess Cord Arterial Bld -5.6 mEq/L (-9-1.8); CO2 Cord Arterial Blood 66 mmHg (39.1-73.5); HCO3 Cord Arterial Blood 24 mmol/L (19.7-28.5); Oxygen Sat Cord Arterial Blood < 60.0 % (<60); PO2 Cord Arterial Blood 20 mmHg (4.1-31.7); pH Cord Arterial Blood 7.17 (7.1-7.38)
[2022-07-02] MEDS ORDERED: ONDANSETRON 4 MG OD TAB PO PRN (05:12)
--- NOTE | 2022-07-02 07:40 | Anesthesia Procedure Note ---
Date of Service July 02, 2022 Anesthesia Post Epidural Note Vital Signs Vital Signs: Temp Pulse Resp BP Pulse Ox O2 Del Method 36.9 C 110 H 18 110/72 96 Room Air 07/02/22 04:26 07/02/22 04:07/02/22 04:26 07/02/22 04:26 07/02/22 04:07/02/22 04:26 Pain Intensity Bilateral Abdomen: Pain Intensity: 6 Bilateral Back: Pain Intensity: 4 Notes Mental Status: alert / awake / arousable and participated in evaluation Nausea / Vomiting: adequately controlled Pain: adequately controlled Airway Patency, RR, SpO2: stable & adequate BP & HR: stable & adequate Hydration State: stable & adequate Neuraxial Anesthesia: was administered and sensory block resolved Anesthetic Complications: no major complications apparent and Pt Satisfied with anesthetic care Epidural: Removed without complications and With tip intact
[2022-07-02] MEDS: PRENATAL VITAMIN 1 TAB PO SCH (08:03)
[2022-07-02] MEDS: DOCUSATE SODIUM 100 MG CAP PO SCH ×2 (08:03→21:17)
[2022-07-03 06:18] LABS: Hematocrit (blood only) 29.6 % (37.0-47.0); Hemoglobin 9.9 g/dl (12.0-16.0)
--- NOTE | 2022-07-03 06:29 | Obstetrical Progress Note ---
Date of Service July 03, 2022 Assessment & Plan (1) care following vaginal delivery: Plan - Overall, feeling well and eating well today - Infant feeding going well without concern - Urinating and passing gas appropriately - Ambulating well in room - Pain controlled w/ Ibuprofen - Hgb 9.9 on 07/03 - Vitals stable and wnl - Routine PP care progressing well - Anticipate discharge @ 24-48 hours PP - Recommending f/u outpatient in 6 weeks Admission and Anticipated Discharge Date Admission Date: July 01, 2022 Supervising Physician Co-Signing Physician Notes patient is seen and evaluated with resident and agree with the above findings and plan Subjective Enedina is a 26F who is PPD #1 following delivery at 41 3/7. She reports feeling well overall this morning. - Ambulation - well throughout room - Voiding/Feliz - independent voids, no dysuria or pressure - Gas/Stool - passing gas, no bowel movement - Diet - regular, no nausea or emesis - Lochia - diminishing, light amount - Infant Feeding Type - breast feeding - Pain Level - 3/10, controlled with Ibuprofen Review of Systems - Denies fever, chills, sweats - Denies shortness of breath, difficulty breathing, chest pain, palpitations, chest pressure. - Denies breast pain. - Denies dysuria. - Denies headache or changes in vision. Physical Exam Physical Exam: General: Alert, oriented. No acute distress. Cardiac: RRR, normal S1/S2, no murmurs/rubs/gallops. Respiratory: Non-labored, CTAB, no wheezes/rales/rhonchi. Symmetric chest rise. Abdomen: Soft, nontender, nondistended. Bowel sounds present. Uterus: Uterine fundus firm, palpable 1 cm below umbilicus. Lower Extremities: No lower extremity edema or swelling. No deep calf pain. Jw's negative bilaterally. Results & Data ([facility]) Vital Signs (Past 12 Hours) Vital Signs Temp Pulse Resp BP Pulse Ox O2 Del Method 07/03/22 00:55 36.8 C 90 18 110/68 99 Room Air 07/02/22 20:30 Room Air 07/02/22 21:00 36.7 C 93 H 18 106/70 97 Room Air Resident Activity Tracking Resident Involvement: Resident Care Provided Care Provided: OB Delivery
[2022-07-03] MEDS: IBUPROFEN 600 MG TAB PO PRN ×2 (08:55→15:32)
[2022-07-03] MEDS: DOCUSATE SODIUM 100 MG CAP PO SCH ×2 (08:56→20:30)
[2022-07-03] MEDS: PRENATAL VITAMIN 1 TAB PO SCH (08:56)
[2022-07-03] MEDS ORDERED: bisacodyL 5 MG TABEC PO SCH (20:00)
[2022-07-04] MEDS ORDERED: bisacodyL 10 MG SUPP PR PRN
[2022-07-04] MEDS: IBUPROFEN 600 MG TAB PO PRN ×3 (03:02→13:48)
--- NOTE | 2022-07-04 07:19 | Obstetrical Progress Note ---
Date of Service July 04, 2022 Assessment & Plan (1) care following vaginal delivery: Plan - Overall, feeling well and eating well today - Infant feeding going well without concern - Urinating and passing gas appropriately - Ambulating well in room - Pain controlled w/ Ibuprofen - Hgb 9.9 on 07/03 - Vitals stable and wnl - Routine PP care progressing well - Patient tearful in conversation, notes she does have counseling visit scheduled, resources discussed - Anticipate discharge @ 24-48 hours PP - Recommending f/u outpatient in 6 weeks Admission and Anticipated Discharge Date Admission Date: July 01, 2022 Supervising Physician Co-Signing Physician Notes Resident Physician Supervision Note: I interviewed and examined the patient. Discussed with Dr. Perez and agree with findings and plan as documented in the note. Any exceptions or clarifications are listed here: PPD#2 doing well. Some blues, has therapist that she follows with. DC today, discussed DC instructions. Documented By: Mel Garvin, DO Subjective Enedina is a 26F who is PPD #2 following delivery at 41 3/. She reports feeling well overall this morning. - Ambulation - well throughout room - Voiding/Feliz - independent voids, no dysuria or pressure - Gas/Stool - passing gas, no bowel movement - Diet - regular, no nausea or emesis - Lochia - diminishing, light amount - Infant Feeding Type - breast feeding - Pain Level - 4/10, controlled with Ibuprofen Review of Systems - Denies fever, chills, sweats - Denies shortness of breath, difficulty breathing, chest pain, palpitations, chest pressure. - Denies breast pain. - Denies dysuria. - Denies headache or changes in vision. Physical Exam Physical Exam: General: Alert, oriented. No acute distress. Cardiac: RRR, normal S1/S2, no murmurs/rubs/gallops. Respiratory: Non-labored, CTAB, no wheezes/rales/rhonchi. Symmetric chest rise. Abdomen: Soft, nontender, nondistended. Bowel sounds present. Uterus: Uterine fundus firm, palpable 2 cm below umbilicus. Lower Extremities: Trace lower extremity edema. No deep calf pain. Jw's negative bilaterally. Results & Data ([facility]) Vital Signs (Past 12 Hours) Vital Signs Temp Pulse Resp BP 07/04/22 04:00 36.7 C 90 18 106/73 07/03/22 21:14 36.8 C 96 H 18 114/81 Resident Activity Tracking Resident Involvement: Resident Care Provided Care Provided: OB Delivery
[2022-07-04] MEDS: PRENATAL VITAMIN 1 TAB PO SCH (10:25)
[2022-07-04] MEDS: DOCUSATE SODIUM 100 MG CAP PO SCH (10:25)
--- NOTE | 2022-07-10 08:57 | Coding Query ---
CODING QUERY To promote full compliance with coding requirements relating to patient care, provider participation is requested in all cases of animal care service worker uncertainty. Please assist us with the question(s) below: Coding Question(s): The H&P documents Hx Herpes. Please specify below, regarding the History of Herpes: ( x) History of Herpes, Unspecified Herpes ( ) History of Herpes, Specified Herpes: Please Specify This is a hx of genital herpes in the past with last outbreak many years ago (like 2011). No current symptoms. This was not the principal or admitting diagnosis Physician's Response(s): Thank you Lashell Lua Principal Diagnosis: "that condition established after study, to be chiefly responsible for occasioning the admission of the patient to the hospital for care." Co-Existing Principal Diagnosis: "when two or more diagnoses equally meet the criteria for principal diagnosis as determined by the circumstances of admission, diagnostic work up, and/or therapy provided, and the Alphabetic Index, Tabular List, or another coding guideline does not provide sequencing direction, any one of the diagnoses may be sequenced first." "When the physician has documented what appears to be a current diagnosis in the body of the record, but has not included the diagnosis in the final diagnostic statement, the physician should be asked whether the diagnosis should be added." (Source [facility]oding [facility] 2 QTR90. p3-4) FELIX
== END 2022-07-04 16:00 | disposition home or self-care (01) | DRG 806 ==
LOC: 4S1 07:38 → 4E2 07-02 04:20

== ENCOUNTER 2025-01-14 11:28 | Inpatient (IN) ==
[2025-01-14] MEDS ORDERED: OXYTOCIN 30 UNITS/NSS 30 UNITS/500 ML BAG IV PRN (12:06)
[2025-01-14] MEDS ORDERED: LACTATED RINGER'S 1,000 ML IV PRN (12:06)
[2025-01-14] MEDS ORDERED: LIDOCAINE 1% LOCAL 20 ML VIAL INFIL PRN (12:06)
--- NOTE | 2025-01-14 12:12 | History & Physical Report ---
Date of Service January 14, 2025 Assessment & Plan (1) Encounter for supervision of normal in multigravida: (2) Herpes: (3) Elvie-Danlos disease: Plan 29 yo at 39 4/7 wga presents in labor, with possible srom VSS Fetus cat 1 Labor - desires minimal intervention, still leaking small amount but in active labor w/ forebag palpated. HSV - no obvious lesions seen, denies prodromal s/s GBS neg desires to go unmedicated EDS - will T&S due to potential increased risk for PPH per prior mfm note History of Present Illness Chief Complaint: labor, ?srom Primary Care Provider: Gael Neal, DO 29 yo at 39 4/7 wga presents in labor and suspected srom. Reports LOF began just before 7am, around 1030 ctx became regular and worsening. 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: G1 2022 41 wks G2 current hx HSV denies hx abnl pap Allergies Allergy/AdvReac Type Severity Reaction Status Date / Time Iodinated Contrast Media Allergy Severe Anaphylaxis Verified 01/14/25 12:14 clindamycin AdvReac Severe Hives Verified 01/14/25 12:14 amoxicillin AdvReac Mild GI UPSET Verified 01/14/25 12:14 cefuroxime AdvReac Mild GI UPSET Verified 01/14/25 12:14 clarithromycin AdvReac Mild GI UPSET Verified 01/14/25 12:14 clavulanic acid AdvReac Mild GI UPSET Verified 01/14/25 12:14 ketorolac AdvReac Mild NAUSEA/VOMI Verified 01/14/25 12:14 TING Home Medications Medication Instructions Recorded Confirmed Type ferrous sulfate 325 mg (65 mg 325 mg PO DAILY 10/26/24 01/14/25 History iron) tablet ascorbic acid (vitamin C) 1,000 mg 1,000 mg PO DAILY 11/16/24 01/14/25 History capsule valacyclovir 1 gram tablet 1,000 mg PO DAILY #90 tabs 12/07/24 01/14/25 Rx (Valtrex) 21-iron fu-folic acid 1 tab PO DAILY 01/11/25 01/11/25 History [ Complete] Patient History Medical History Varicella vaccination Neck pain Mixed common migraine and muscle contraction headache Greater trochanteric bursitis TMJ syndrome Biceps tendonitis on left RND (reflex neurovascular dystrophy) Panic anxiety syndrome Arthralgia Patella-femoral syndrome GERD (gastroesophageal reflux disease) IBS (irritable bowel syndrome) Fibromyalgia Osteoarthritis Juvenile arthritis Migraine Asthma "CHILDHOOD" Surgical History Hx of cholecystectomy 2019 Nausea and vomiting after administration of anesthetic agent History of arthroscopy of left shoulder History of bladder surgery "BENIGN TUMOR" EXCISION History of colonoscopy History of esophagogastroduodenoscopy (EGD) History of oral surgery FRENECTOMY X 2 History of arthroscopic knee surgery Family History Grandmother (Maternal) Family history of reaction to anesthesia delirium lasting a couple days after anesthesia Clotting disorder Hypertension Mother Heart disease Endometriosis Uterine leiomyoma Cardiomyopathy Aunt Skin cancer Cardiomyopathy Denies family history of Ovarian cancer Prostate cancer Myocardial infarction Breast cancer Colorectal cancer Social History Smoking Status: Never smoker Second Hand Exposure: No; Do You Dip or Chew Tobacco: No; Hx Alcohol Use: No Hx Substance Use: No Preferred Language: Telugu Communication Ability: Effective Visual Impairment: No Limitations Hearing Ability: Normal 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 Other Information That Helps Us Care for You: No Feels Safe at Home: Yes Safety Concerns: Feels Safe At This Time Childhood Exposure to Second-Hand Smoke: No Diet: regular caffeine: Yes Dental Care, Regularly: Yes Physical Activity Frequency: Daily Seatbelt Use: always Sunscreen Use: Yes Assistive Devices: None Physical Exam Genitourinary: OB Exam Abdomen: + vertex Manual OB Exam: + cervical dilation (4-5), + cervical effacement 80%, + station -2 and + amniotic fluid (forebag palpated) OB Exam Monitor Tracing: + external FHT monitor used, + external uterine monitor used (q4) and + category I (135-140/mod/+accel/-decel) SSE w/o obvious evidence of HSV lesions Results & Data Vital Signs (Past 12 Hours) Vital Signs Temp Pulse Resp BP 01/14/25 11:46 98.2 F 20 01/14/25 11:41 88 104/58 L Laboratory Results OB Labs: Blood Type A Positive 06/09/24 Antibody Screen NEGATIVE 06/09/24 Hgb 10.9 g/dl (12.0-16.0) L 12/01/24 Hct 33.9 % (37.0-47.0) L 12/01/24 MCV 90.2 fL (80.0-100.0) 12/01/24 Plt Count 283 K/uL (130-400) 12/01/24 Rubella IgG Antibody Immune (Immune) 06/09/24 RPR Nonreactive (Nonreactive) 11/13/21 Treponema pallidum Ab Negative (Negative) 10/26/24 Hep Bs Antigen Negative (Negative) 06/09/24 Hep Bs Antigen NON-REACTIVE (NON-REACTIVE) 11/13/21 Hepatitis C Antibody Negative (Negative) 06/09/24 Hepatitis C Ab (EIA) NON-REACTIVE (NON-REACTIVE) 11/13/21 HIV 1&2 Ab/P24 Ag 4thGn Negative (Negative) 06/09/24 HIV (1&2) Ag & Ab Conf NON-REACTIVE (NON-REACTIVE) 11/13/21 Glucose 1 Hr 50 gm 89 mg/dl (70-130) 10/26/24 OB Optional Labs: Chlamydia trachomatis RNA Not Detected (NotDetected) 06/09/24 Neisseria gonorrhoeae RNA Not Detected (NotDetected) 06/09/24 Thyroid Stimulating Hormone (TSH) 1.217 uIu/ml (0.300-4.500) 02/04/24 Labs Reviewed: Horizon 14-negative--mln Declines cfdna--mln GBS neg Diagnostic Findings ant plac Coding Level of Care Code None Diagnoses Encounter for supervision of normal in multigravida Z34.80 Herpes B00.9 Elvie-Danlos disease Q79.60
[2025-01-14 12:30] LABS: Hematocrit (blood only) 35.5 % (37.0-47.0); Hemoglobin 11.6 g/dl (12.0-16.0); Mean Corpuscular Hemoglobin 29.0 pg (25.0-34.0); Mean Corpuscular Volume 88.8 fL (80.0-100.0); Platelet Count 274 K/uL (130-400); RDW Standard Deviation 47.1 fL (36.4-46.3); Red Blood Count 4.00 M/uL (4.20-5.40); White Blood Count 15.62 K/ul (4.8-10.8)
[2025-01-14] MEDS: OXYTOCIN 30 UNITS/NSS 30 UNITS/500 ML BAG IV PRN (13:12)
[2025-01-14] MEDS ORDERED: DIPHTHER/TETAN/PERTUS Vaccine (Tdap, Adol/Adult) 0.5mL IM ONE (13:25)
[2025-01-14] MEDS ORDERED: HYDROCORTISONE ACETATE 25 MG SUPP PR PRN (13:25)
--- NOTE | 2025-01-14 13:25 | Delivery Summary ---
Vaginal Delivery Summary Date of Service January 14, 2025 Vaginal Delivery Summary [facility] PREOPERATIVE DIAGNOSIS: 1. Single intrauterine at 39 4/7 wga 2. Labor 3. Elvie Danlos 4. HSV POSTOPERATIVE DIAGNOSIS: 1. Single intrauterine at 39 4/7 wga 2. Labor 3. Elvie Danlos 4. HSV 5. Delivered PROCEDURE: 1. Normal spontaneous vaginal delivery. SURGEON: Shalonda Cronin MD ANESTHESIA: None QUANTITATIVE BLOOD LOSS: 50 mL FLUIDS: Continuous LR. URINE OUTPUT: None. COMPLICATIONS: None. CONDITION: Stable. INDICATIONS: 29 yo at 39 4/7 wga presented with suspected srom and in labor. She was 4-5cm on arrival. She rapidly progressed to complete and und erwent forebag arom to push FINDINGS: A viable female , weight pending with Apgars of 8 and 9 at 1 and 5 minutes respectively. SPECIMEN: Cord blood OPERATIVE REPORT: The patient progressed to 10 cm, 100% effaced and +2 station, pushed over intact perineum with anesthesia to deliver a viable female , weight and Apgars as above. Head of delivered in RAFAEL position. No nuchal cord was present. Body and shoulders were delivered without difficulty. was delivered to maternal abdomen and nursing staff. Delayed cord clamping was performed for 60 seconds. Cord was clamped and cut. Cord blood was obtained. Placenta delivered spontaneously intact with 3-vessel cord. IV oxytocin and fundal massage were given for excellent hemostasis. Vagina, cervix, perineum, and placenta were inspected. Hemostatic first degree was noted and not needed to be repaired. Sponge and needle counts correct x2. No sponges were left behind. Mother and stable in immediate period. [facility] Vaginal Delivery Charge Vaginal Delivery Codes: 65162 global code for the antepartum, delivery, and post- Delivery Type Details: [facility]
[2025-01-14] MEDS: BENZOCAINE 20% SPRY 85 APPLN/85 GM CAN EXT PRN (13:41)
[2025-01-14] MEDS: IBUPROFEN 600 MG TAB PO PRN (13:42)
[2025-01-14 16:25] VITALS: RESP 16
[2025-01-14] MEDS: ACETAMINOPHEN 325 MG TAB PO PRN (20:35)
[2025-01-14] MEDS: DOCUSATE SODIUM 100 MG CAP PO SCH (20:35)
[2025-01-15] MEDS: PRENATAL VITAMIN 1 TAB PO SCH (08:22)
--- NOTE | 2025-01-15 08:43 | Obstetrical Progress Note ---
Date of Service January 15, 2025 Assessment & Plan (1) Encounter for care and examination after delivery: 29 yo PP1 from , doing well -Meeting all pp milestones -A+/rubella immune -f/u 6 weeks for appt, desires dc today Subjective Ambulation: ambulating normally Voiding: no voiding problems Passing Gas:: Yes Diet Tolerance:: regular diet Lochia:: Small Pain well managed with medication Review of Systems Denies fevers, chills, n/v, RAMIREZ, CP, SOB Physical Exam Constitutional WD/WN, vitals as above no acute distress Respiratory normal respiratory effort, lungs clear to auscultation Cardiovascular RRR, no murmur, no edema Gastrointestinal (Abdomen) Percussion/Palpation: abdomen soft; abdomen nontender fundus firm at umbilicus and NT Musculoskeletal BLE symmetric, nonerythematous, nontender Results & Data Vital Signs (Past 12 Hours) Vital Signs Temp Pulse Resp BP Pulse Ox O2 Del Method 01/15/25 07:15 98.1 F 92 H 16 94/63 L 96 Room Air 01/15/25 03:09 98.1 F 74 16 94/69 L 98 Room Air 01/14/25 22:59 98.1 F 72 16 116/76 98 Room Air
[2025-01-15 17:13] VITALS: BP 102/72; PULSE 82; TEMP 98.4; O2SAT 99
== END 2025-01-15 18:07 | disposition home or self-care (01) | DRG 806 ==
LOC: OPB 11:28 → 4S1 11:32 → 4E2 15:58